=== PATIENT | female | born 1950 | race Caucasian/White ===

== ENCOUNTER 2024-05-10 20:06 | Emergency (ER) | payer MEDICARE, SELFPAY ==
[2024-05-10 20:17] VITALS: PULSE 77; O2SAT 97
--- NOTE | 2024-05-10 20:41 | EKG_ITS ---
[facility] Test Date: 2024-05-10 Pat Name: YENNY MCCRARY Department: Room: - Gender: Female Dough Catcher: : 1950 Requested By: ED Temporary Provider Order Number: [id number] Reading MD: ED Temporary Provider Measurements Intervals [place] Rate: 80 P: 48 VA: 180 QRS: -15 QRSD: 87 T: 57 QT: 416 QTc: 482 Interpretive Statements SINUS RHYTHM LEFT ATRIAL ENLARGEMENT [-0.15mV P WAVE IN V1/V2] Compared to ECG 02/14/2024 19:17:58 Sinus tachycardia no longer present Left-axis deviation no longer present T-wave abnormality no longer present /store/S0/[id number]/ecg/[id number].pdf
[2024-05-10 20:54] VITALS: BP 110/67; PULSE 80; RESP 16; TEMP 36.8; O2SAT 99
[2024-05-10 20:58] VITALS: BMI 20.9
--- NOTE | 2024-05-10 21:06 | PC.NURSE ---
Pt BIB EMS with chief c/o of right hip/shoulder pain after she past out while she was getting up from her chair. Pt does have external rotation of the right left and swelling to the right shoulder.. Pt denied hitting head. Pt is A GCS of 15, A&O X 4. Pt was placed on recovery auditor. call light within reach.
--- NOTE | 2024-05-10 21:20 | XR_ITS ---
Examination: Right shoulder 2 views Technique: AP internal rotation, Y view right shoulder 2 views Exam date and time: May 10, 2024 2135 hrs. Indications: Patient fell today with injury to the shoulder, shoulder pain. Findings: Acute fracture right humeral neck with at least 15 mm offset No dislocation No AC joint separation Impression: Acute fracture right humeral neck
--- NOTE | 2024-05-10 21:20 | XR_ITS ---
Examination: Right scapula 2 views Technique: AP axial right scapula 2 views Exam date and time: May 10, 2024 at 2140 hrs. Indications: Patient fell today with injury to the shoulder, shoulder pain. Findings: Acute fracture humeral neck with significant offset on the Y view Scapula appears intact Impression: Acute displaced fracture humeral neck
--- NOTE | 2024-05-10 21:20 | XR_ITS ---
Examination: Bilateral hips, AP pelvis, 5 views Technique: AP, lateral views both hips, AP pelvis, 5 views Exam date and time: May 10, 2024 2141 hrs. Indications: Patient fell this evening with injury to the hips, hip pain Findings: Acute right hip fracture through the subtrochanteric region with mild avulsion of the lesser trochanter right hip No displacement No dislocation of the prosthetic hemiarthroplasty Left hip bones of the pelvis intact Impression: Acute comminuted nondisplaced right hip fracture
--- NOTE | 2024-05-10 21:20 | XR_ITS ---
Examination: Right os calcis 2 views Technique: Axial lateral right os calcis 2 views Exam date and time: May 10, 2024 2152 hrs. Indications: Nonhealing wound on the heel one month. Findings: No fracture or dislocation No blue cortical bone destruction Impression: No blue cortical bone destruction MRI ankle without contrast follow-up would best assess for early osteomyelitis
--- NOTE | 2024-05-10 21:26 | XR_ITS ---
Examination: CT brain head without contrast. 2-D sagittal coronal reconstructions Date and time of exam:May 10, 2024 11:54 PM Indications: Patient fell today with injury to the head, head pain CTDI: vol (mGy):44.1 DLP: (mGycm):869 Technique: Multiple CT axial sections of the brain have been obtained, 5 mm slice thickness. Contrast has not been administered. 2-D sagittal, coronal reconstructions have been obtained Low dose protocols were performed. One or more of the following dose reduction techniques were used; automated exposure control, adjustment of the mA and/or KV according to patient size, use of iterative reconstruction technique. Findings: No significant ventricular enlargement. 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 No mass effect or midline shift Basal cisterns are not remarkable. Fourth ventricle is midline. Cranial vault intact. Impression: Negative for acute hemorrhage, mass effect or midline shift
--- NOTE | 2024-05-10 21:26 | XR_ITS ---
Examination: CT cervical spine without contrast 2-D sagittal reconstructions 2-D coronal reconstructions 3-D reconstructions. Exam date and time:May 10, 2024 11:56 PM Indications: Patient fell today with injury to the neck, neck pain CTDI:vol (mGy) 7.76 DLP: (mGycm) 173 Technique: Multiple 2 mm axial sections of the cervical spine have been obtained. The coronal and sagittal reconstructions have been obtained. 3-D reconstructions have been obtained. Low dose protocols were performed. One or more of the following dose reduction techniques were used; automated exposure control, adjustment of the mA and/or KV according to patient size, use of iterative reconstruction technique. Findings: Axial sections demonstrate intact base of the skull. C1 exhibit satisfactory relationship to the odontoid. No acute cervical vertebral body fracture seen. Alignment posterior spinous processes satisfactory. Impression: No acute cervical fracture. Heavy carotid vascular calcification, clinical correlation advised, consider carotid Doppler sonography follow-up
--- NOTE | 2024-05-10 21:27 | XR_ITS ---
Examination: AP chest single view Technique: AP portable semiupright chest single view Exam date and time: May 10, 2024 0933 hrs. Comparison February 14, 2024 Indications: Patient fell today with injury to the chest, chest pain Findings: Normal heart size No pneumothorax Stable pulmonary mass right upper lobe measuring 26 mm on this study compared to 28 mm on February 14, 2024 Prominent osteopenia Clavicles and ribs appear intact Impression: No pneumothorax pulmonary contusion or hemothorax
[2024-05-10 21:31] VITALS: PULSE 82
[2024-05-10] MEDS: SODIUM CHLORIDE 0.9% 1000 ML 1,000 ML 999 ML IV (21:42)
[2024-05-10] MEDS: MORPHINE SULF INJ 10 MG/ML VIAL IV (21:44)
[2024-05-10] MEDS: ONDANSETRON INJ 2 MG/ML INJ 2 ML 4 MG IV (21:44)
[2024-05-10] MEDS: SODIUM CHLORIDE 0.9% 1000 ML 1,000 ML 120 ML IV (21:58)
--- NOTE | 2024-05-10 22:10 | EDNOTE_ITS ---
ED Fall Injury RME/HPI General Chief Complaint: Fall Stated Complaint: HIP/ARM PAIN AFTER FALL Time Seen by Provider: 05/10/24 21:14 Arrival date/time: 05/10/24 20:06 RME / HPI RME / HPI Narrative: A 74-year-old female patient with past medical history of COPD, hypertension, type 2 diabetes mellitus on insulin, fibromyalgia, CKD, peripheral neuropathy, drug abuse, was brought to the ED after she fell down at home. Patient reported that she was about to go from her room to the hallway while she was trying to open the door she felt dizzy and fell down to the ground. Patient reported that she fell on her right side of her body and that she complains of pain and limited mobility of her right shoulder and right hip. Patient also reported that she has laceration on her right heel that has been going on for weeks. Patient reported that she does not remember what happened during her fall down. However she remember when her came to see her and when he called the ambulance. Patient denied any head trauma, bleeding, seizures, chest pain or shortness of breath. Related Data Home Medications ?Medication ?Instructions ?Recorded ?Confirmed glipizide 10 mg tablet 10 mg PO BID #0 tabs 11/24/16 02/14/24 lisinopril 20 mg tablet 20 mg PO QDAY 06/10/19 02/14/24 furosemide 20 mg tablet 20 mg PO QAM 09/09/20 02/14/24 insulin detemir U-100 100 unit/mL 60 unit subcut QDAY 09/09/20 02/15/24 (3 mL) subcutaneous pen (Levemir FlexTouch U-100 Insulin) vitamin B comp no.3-folic acid 1 1 tab PO DAILY 09/09/20 02/14/24 mg-vit C 60 mg-biotin 300 mcg tablet (Mandy-Divya Rx) atorvastatin 40 mg tablet 40 mg PO DAILY 02/14/24 02/14/24 famotidine 40 mg tablet 40 mg PO HS 02/14/24 02/14/24 methimazole 5 mg tablet 5 mg PO DAILY 02/14/24 02/14/24 pantoprazole 40 mg tablet,delayed 40 mg PO DAILY 02/14/24 02/14/24 release propranolol 10 mg tablet 10 mg PO BID 02/14/24 02/14/24 methocarbamol 750 mg tablet 750 mg PO 4XD 02/15/24 02/15/24 Previous Rx's ?Medication ?Instructions ?Recorded ferrous sulfate 325 mg (65 mg 325 mg PO Q OTHER DAY 30 days #15 02/18/24 iron) tablet (FeroSul) tabs Allergies Allergy/AdvReac Type Severity Reaction Status Date / Time No Known Allergies Allergy Verified 09/09/20 06:31 ED Exam Narrative Physical exam: GEN: AOx3, able to speak full sentences HEENT: NC/AC, PERRLA, oral mucosa dry, neck supple, no point tenderness or deformity CVS: RRR, S1-S2 present, no murmurs appreciated RESP: No visible bruises, deformity, CTAB GI: soft,non distended, non tender, NBS MSK: Limited mobility of the right shoulder secondary to pain, tender, pulse intact peripherally, no numbness unable to move fingers of the right hand. Right lower extremity showed limited mobility, externally rotated feet, limitation of mobility secondary to pain. However no obvious deformity. SKIN: warm and dry, no bruises or bleeding. SEMICONDUCTOR BONDER: CN II-XII and Sensation grossly intact. Course Quality Measures none Orders Category Date Time Status Certified Nuclear Medicine Technologist NOW Care 05/10/24 21:20 Active Catheter [Urinary Catheter] QS Care 05/10/24 21:20 Active Continuous Pulse Oximetry NOW Care 05/10/24 21:20 Completed EKG (ED ONLY) *Do not use* NOW Care 05/10/24 20:41 Completed Glucose [Bedside Blood Glucose] NOW Care 05/11/24 02:07 Active Insert IV NOW Care 05/10/24 21:21 Active NPO NOW Care 05/10/24 21:20 Active Strict Intake and Output Routine Care 05/10/24 21:33 Ordered Wound Care NOW Care 05/10/24 21:[address] cervical spine wo con Stat Exams 05/10/24 21:[address] head/brain wo con Stat Exams 05/10/24 21:[address] hip RT wo con Stat Exams 05/10/24 23:[address] shoulder RT wo con Stat Exams 05/10/24 23:26 Taken CXRP [XR chest 1V portable] Stat Exams 05/10/24 21:27 Completed EKG (ED Only) Stat Exams 05/10/24 20:41 Draft XR calcaneus RT min 2V Stat Exams 05/10/24 21:20 Completed XR hip BI w pelvis 2V Stat Exams 05/10/24 21:20 Completed XR scapula RT Stat Exams 05/10/24 21:20 Completed XR shoulder RT min 2V Stat Exams 05/10/24 21:20 Completed Beta Hydroxybutyrate Stat Lab 05/10/24 22:15 Completed Blood Culture (Lab) Stat Lab 05/10/24 23:15 Received CBC Stat Lab 05/10/24 22:15 Completed Comprehensive Metabolic Panel Stat Lab 05/10/24 22:15 Completed Drug Screen,Urine Stat Lab 05/10/24 22:33 Completed Lactate (Lactic Acid) Stat Lab 05/10/24 22:15 Completed Lactic Acid, 3 HR Stat Lab 05/11/24 01:58 Completed Lipase Stat Lab 05/10/24 22:15 Completed Partial Thromboplastin Time Stat Lab 05/10/24 22:15 Completed Procalcitonin Stat Lab 05/10/24 23:18 Completed Prothrombin Time with INR Stat Lab 05/10/24 22:15 Completed Troponin I Stat Lab 05/10/24 22:15 Completed UA [Urinalysis] Stat Lab 05/11/24 00:12 Ordered Urinalysis Stat Lab 05/10/24 22:33 Completed Urine Culture Stat Lab 05/11/24 00:12 Ordered Insulin Regular Med 05/10/24 23:42 Discontinued 6 unit IV X1 ONE Morphine Inj Med 05/10/24 21:22 Discontinued 1 mg IV X1 ONE Morphine Inj Med 05/11/24 00:43 Discontinued 2 mg IVP X1 ONE Ondansetron Inj [Zofran Inj] Med 05/10/24 21:20 Active 4 mg IV Q6H PRN Sodium Chloride 0.9% 1000 ml [Ns] 1,000 ml Med 05/10/24 21:33 Active IV 120 mls/hr Sodium Chloride 0.9% 1000 ml [Ns] 1,000 ml Med 05/10/24 21:20 Discontinued IV 999 mls/hr Sodium Chloride 0.9% 500 ml [Ns] 500 ml Med 05/11/24 00:11 Discontinued IV 999 mls/hr cefTRIAXone/D5w 1gm IV premix [Rocephin/D5w 1gm IV Med 05/10/24 23:39 Active premix] 50 ml IV DAILY@2100 Vital Signs Vital signs: Vital Signs Temperature 98.3 F 05/10/24 20:54 Pulse Rate 80 05/10/24 20:54 Respiratory Rate 16 05/10/24 20:54 Blood Pressure 110/67 05/10/24 20:54 Pulse Oximetry (%) 99 05/10/24 20:54 Oxygen Delivery Method Room Air 05/10/24 20:54 Fall Patient data External records reviewed:: [facility] previous records Clinical information provided by:: patient and EMS Social determinants that could affect healthcare access:: substance use Patient has the following chronic illnesses:: COPD, Smoking, Meth abuse, Pulmonary nodule, type 2 diabetes mellitus on insulin. Hypertension How is presenting disease/condition affected by chronic disease/condition?: exacerbated by Evaluation data The following diagnostics were reviewed and interpreted by me:: lab results, radiology exam(s) and EKG tracing(s) Lab and/or radiology exams considered but not ordered:: none Interpretation Summary: Rt Humerus fracture Right periprostatic fracture Medications / Prescriptions Medications or Prescriptions considered but not ordered:: None Medication administrations:: Medication Administration History Sodium Chloride (Ns) 1,000 mls @ 120 mls/hr IV .Q8H20M ONE Stop: 05/11/24 05:52 Last Admin: 05/10/24 21:58 Dose: 120 mls/hr Documented By: SAMAN Ceftriaxone Sodium/Dextrose (Rocephin/D5w 1gm Iv Premix) 50 mls @ 100 mls/hr IV DAILY@2100 VENU Stop: 05/17/24 23:38 Last Infusion: 05/11/24 01:29 Dose: Infused Documented By: Admin: 05/11/24 00:49 Dose: 100 mls/hr Documented By: JOSE Ondansetron HCl (Ondansetron Inj 2 Mg/Ml Inj 2 Ml) 4 mg IV Q6H PRN PRN Reason: NAUSEA OR VOMITING Last Admin: 05/10/24 21:44 Dose: 4 mg Documented By: JOSE Discontinued Medications Sodium Chloride (Ns) 1,000 mls @ 999 mls/hr IV .Q1H1M ONE Stop: 05/10/24 22:20 Last Infusion: 05/10/24 22:45 Dose: Infused Documented By: Admin: 05/10/24 21:42 Dose: 999 mls/hr Documented By: JOSE Sodium Chloride (Ns) 500 mls @ 999 mls/hr IV .Q31M ONE Stop: 05/11/24 00:41 Last Infusion: 05/11/24 01:38 Dose: Infused Documented By: Admin: 05/11/24 01:06 Dose: 999 mls/hr Documented By: JOSE Insulin Human Regular (Insulin Hum Regular 1 Unit/0.01 Ml (Per Unit)) 6 unit IV X1 ONE Stop: 05/10/24 23:43 Last Admin: 05/11/24 00:53 Dose: 6 unit Documented By: JOSE Co-signed By: KG Morphine Sulfate (Morphine Sulf Inj 10 Mg/Ml Vial) 1 mg IV X1 ONE Stop: 05/10/24 21:23 Last Admin: 05/10/24 21:44 Dose: 1 mg Documented By: JOSE Morphine Sulfate (Morphine Sulf Inj 10 Mg/Ml Vial) 2 mg IVP X1 ONE Stop: 05/11/24 00:44 Last Admin: 05/11/24 00:47 Dose: 2 mg Documented By: JOSE As above Consultations Consultation(s) initiated? (list below): Yes Diagnosis Fall Differential Diagnosis: other Most likely diagnosis given after review of the tests above:: Right humerus fracture Right Periprosthetic fracture of the femur. Admission Indicated Admission indicated?: indicated Admission Request Was there a request for admission?: Yes Admission Attestation Admission request attestation: Discussed case with [] from Hospitalist service regarding admission. Discussed patients ED course, exam findings, labs, and radiology results. The Hospitalist [agrees,declines] to accept the patient for admission. Disposition Plan Disposition Plan: Transfer Discharge Plan Plan Patient Disposition: [facility] Facility Pt Being Transferred to: Other-Specify in comment Service Needed for Transfer: Orthopedics Health Concerns: Patient will need orthopedic surgery recommendations and management per fractures Patient will need follow-up on her pulmonary nodule Patient has small chronic laceration on the right heel, x-ray did not show osteomyelitis will need follow-up. Prescriptions/Referrals Prescriptions/Med Rec: No Action glipizide 10 MG tablet 10 mg PO BID Qty: 0 furosemide 20 mg Tablet 20 mg PO QAM Levemir FlexTouch U100 Insulin 100 unit/mL (3 mL) Insulin Pen 60 unit SUBCUT QDAY Mandy-Divya Rx 1-60-300 mg-mg-mcg Tablet 1 tab PO DAILY lisinopril 20 mg Tablet 20 mg PO QDAY famotidine 40 mg tablet 40 mg PO HS Patient Comments: take 1 tablet by mouth at bedtime pantoprazole 40 mg tablet,delayed release (DR/EC) 40 mg PO DAILY Patient Comments: take 1 tablet by mouth once daily atorvastatin 40 mg tablet 40 mg PO DAILY Patient Comments: take 1 tablet by mouth once daily methimazole 5 mg tablet 5 mg PO DAILY Patient Comments: take 1 tablet by mouth once daily 30 propranolol 10 mg tablet 10 mg PO BID Patient Comments: take 1 tablet by mouth twice a day methocarbamol 750 mg Tablet 750 mg PO 4XD ferrous sulfate [FeroSul] 325 mg (65 mg iron) tablet 325 mg PO Q OTHER DAY 30 Days Qty: 15 0RF Patient Comments: take 1 tablet by mouth twice a day Referrals: Michael Morris MD [Primary Care Provider] - In 1 week Problem List Clinical Impression: Methamphetamine abuse, Fracture, humerus, Periprosthetic fracture around internal prosthetic hip joint Patient/Caregiver Discharge Instructions Education Materials: Addiction Ask These Questions, Hip Replace Total Activity, Hip Precautions Print Language: Uzbek Stand Alone Forms: Jessica Award Info., Patient Portal Info Letter
[2024-05-10 22:26] LABS: Basophils # (Auto) 0.1 Thou/mm3 (0.0-0.2); Basophils % (Auto) 1 % (0-2.5); Eosinophils # (Auto) 0.3 Thou/mm3 (0.0-0.5); Eosinophils % (Auto) 2 % (0-10); Hematocrit 42.4 % (36.0-46.0); Hemoglobin 14.4 g/dL (12.0-16.0); Immature Granulocytes % (Auto) 1 % (0-0); Immature Granulocytes Auto 0.08 Thou/mm3 (0.00-0.00); Lymphocytes # (Auto) 2.2 Thou/mm3 (1.0-4.8); Lymphocytes % (Auto) 19 % (10-50); Mean Corpuscular Hemoglobin 29.4 pg (25.0-35.0); Mean Corpuscular Volume 87 fL (80-100); Monocytes # (Auto) 0.7 Thou/mm3 (0.0-0.8); Monocytes % (Auto) 6 % (0-12); Neutrophils # (Auto) 8.5 Thou/mm3 (1.8-7.7); Neutrophils % (Auto) 72 % (37-80); Nucleated Red Blood Cell % 0 /100 WBC (0); Platelet Count 424 Thou/mm3 (140-440); RDW Standard Deviation 38.6 fL (36.4-46.3); Red Blood Count 4.89 Miln/mm3 (4.00-5.20); White Blood Count 11.9 Thou/mm3 (3.6-11.0)
[2024-05-10 22:32] LABS: Lactate (Lactic Acid) 4.3 mMol/L (0.4-2.0)
[2024-05-10 22:42] LABS: INR 0.9 (0.9-1.3); Partial Thromboplastin Time 23.4 Seconds (22.0-36.0); Prothrombin Time 10.3 Seconds (9.0-12.2)
[2024-05-10 22:44] LABS: Collection Type, Urine Catheter; RBC,Urine 0 /hpf (0-3); Squamous Epithelial Cell,Urine 0 /hpf (0-5); WBC,Urine 0 /hpf (0-5)
[2024-05-10 22:53] LABS: Bilirubin,Urine Negative (Negative); Blood,Urine Negative (Negative); Clarity,Urine Clear (Clear/Hazy); Color,Urine Colorless (Lt Yel-Yel); Glucose, Urine 4+ (Negative); Ketones,Urine Negative (Negative); Leukocyte Esterase,Urine Negative (Negative); Nitrite,Urine Negative (Negative); Protein,Urine Negative (Neg - Trace); Specific Gravity,Urine 1.024 (1.001-1.035); Urobilinogen,Urine Negative mg/dL (0.0-1.0)
[2024-05-10 23:00] VITALS: BP 131/60; PULSE 84; RESP 16; TEMP 36.7; O2SAT 96
[2024-05-10 23:01] LABS: Alanine Aminotransferase 14 U/L (10-49); Albumin, Serum 4.6 gm/dL (3.4-4.8); Albumin/Globulin Ratio 1.4 (1.2-2.2); Alkaline Phosphatase 128 U/L (46-116); Anion Gap 9 (7-16); Aspartate Amino Transferase 17 U/L (0-34); BUN/Creatinine Ratio 12 Ratio (12-20); Bilirubin,Total 0.4 mg/dL (0.3-1.2); Blood Urea Nitrogen 14 mg/dL (9-23); Calcium 10.4 mg/dL (8.3-10.6); Calcium (Corrected) 10.4 mg/dL (8.5-10.1); Carbon Dioxide 22.2 mMol/L (20.0-31.0); Chloride 96 mMol/L (98-107); Creatinine (Component) 1.2 mg/dL (0.6-1.3); Estimated Creatinine Clearance 39.4 mL/min (>60); Globulin 3.2 gm/dL (2.3-3.5); Lipase 39 U/L (12-53); Osmolality,Calculated 281 (275-295); Potassium 4.7 mMol/L (3.4-5.1); Sodium 127 mMol/L (136-145); Total Protein 7.8 gm/dL (5.7-8.2); Troponin I < 0.020 ng/mL (0.0-0.045); eGFR 48 See Note
[2024-05-10 23:01] LABS: Amphetamine/Methamp Scrn,U Positive (Negative); Barbiturate Screen,Urine Negative (Negative); Benzodiazepines Screen,Urine Negative (Negative); Benzoylecgonine Screen, Ur Negative (Negative); Fentanyl Screen,Urine Negative (Negative); Opiate Screen,Urine Positive (Negative); THC Screen,Urine Positive (Negative)
[2024-05-10 23:03] LABS: Glucose 564 mg/dL (74-106)
[2024-05-10 23:16] LABS: Beta Hydroxybutyrate 0.3 mmol/L (<0.6)
--- NOTE | 2024-05-10 23:26 | XR_ITS ---
Examination: CT right shoulder, without contrast. 2-D sagittal reconstructions. 2-D coronal reconstructions. 3-D reconstructions. Date and time of exam: May 11, 2024 0003 hrs. Indications: Patient fell today with injury to the right shoulder, right shoulder pain CTDI: vol (mGy):7.67 DLP: (mGycm):167 Technique: Multiple 1.25 mm axial sections of the right shoulder have been obtained. 2-D sagittal and coronal reconstructions have been obtained. 3-D reconstructions have been obtained. Low dose protocols were performed. One or more of the following dose reduction techniques were used; automated exposure control, adjustment of the mA and/or KV according to patient size, use of iterative reconstruction technique. Findings: Acute comminuted fracture with impaction right humeral neck Fracture involves both the greater and lesser tuberosities No dislocation of the humeral head Impression: Acute comminuted fractures humeral head and neck
--- NOTE | 2024-05-10 23:26 | XR_ITS ---
Examination: CT pelvis right hip, without contrast. 2-D sagittal reconstructions. 2-D coronal reconstructions. 3-D reconstructions. Date and time of exam:May 11, 2024 at 0007 hrs. Indications: Patient fell today with injury to the right hip, right hip pain CTDI: vol (mGy):4.26 DLP: (mGycm):160 Technique: Multiple 1.25 mm axial sections of the pelvis right hip have been obtained. 2-D sagittal and coronal reconstructions have been obtained. 3-D reconstructions have been obtained. Low dose protocols were performed. One or more of the following dose reduction techniques were used; automated exposure control, adjustment of the mA and/or KV according to patient size, use of iterative reconstruction technique. Findings: Right hip bipolar hemiarthroplasty Fractures are noted involving the proximal right femoral shaft subtrochanteric adjacent to the prosthetic right hip femoral stem No significant displacement Left hip bones of the pelvis intact Impression: Fractures involving the proximal right femoral shaft subtrochanteric without major displacement
--- NOTE | 2024-05-10 23:51 | PD.ORTHCON ---
HPI Consult details Reason for consultation narrative: Pain right shoulder, right hip History of present illness: Patient is a 74-year-old went to answer the door and fell. She has pain in her right shoulder and right hip Past Medical History Past Medical History NEUROLOGIC: Negative Neurological Disorders or Seizures CARDIAC: Positive Hypercholesterolemia and Hypertension; Negative Cardiac Disorders, Congestive Heart Failure, Edema, Cellulitis or Varicose Veins RESPIRATORY: Positive Chronic Obstructive Pulmonary Disease (COPD); Negative Asthma, Pneumonia, Tuberculosis or Sleep Apnea GASTROINTESTINAL: Positive Gastrointestinal Disorders, Gall Bladder Disease and Gastroesophageal Reflux Disease; Negative Hepatitis GENITOURINARY: Negative Genitourinary Disorders or Renal Disease REPRODUCTIVE: Negative Pelvic Inflammatory Disease or Previous Pregnancies MUSCULOSKELETAL: Positive Musculoskeletal Disorders and Arthritis ENDOCRINE: Positive Endocrine Disorders, Diabetes Mellitus Type 2 and Hypothyroidism; Negative Diabetes Mellitus Type 1 HEMATOLOGIC: Positive Blood Disorders and Anemia; Negative Sickle Cell Disease OTHER HISTORY: Positive Hospitalization, Shingles and Measles; Negative Autoimmune Disease, Falls, Blood Transfusions, Anesthesia Reactions, Chemotherapy, MRSA, Chicken Pox, Mumps or Cancer Family History FAMILY HISTORY: Positive Family Cardiac Disorders and Family Cancer; Negative Family Psychiatric Problems, Family Respiratory Disorders, Family Gastrointestinal Problems, Family Surgery or Family Anesthesia Reaction Surgical History SURGICAL: Positive Eye Surgery, Tonsillectomy, Abdominal Surgery and Joint Replacement; Negative Pacemaker Social History SMOKING STATUS: Former smoker Meds Home Medications and Allergies Home Medications ?Medication ?Instructions ?Recorded ?Confirmed ?Type glipizide 10 mg tablet 10 mg PO BID #0 tabs 11/24/16 02/14/24 History lisinopril 20 mg tablet 20 mg PO QDAY 06/10/19 02/14/24 History furosemide 20 mg tablet 20 mg PO QAM 09/09/20 02/14/24 History insulin detemir U-100 100 unit/mL 60 unit subcut QDAY 09/09/20 02/15/24 History (3 mL) subcutaneous pen (Levemir FlexTouch U-100 Insulin) vitamin B comp no.3-folic acid 1 1 tab PO DAILY 09/09/20 02/14/24 History mg-vit C 60 mg-biotin 300 mcg tablet (Mandy-Divya Rx) atorvastatin 40 mg tablet 40 mg PO DAILY 02/14/24 02/14/24 History famotidine 40 mg tablet 40 mg PO HS 02/14/24 02/14/24 History methimazole 5 mg tablet 5 mg PO DAILY 02/14/24 02/14/24 History pantoprazole 40 mg tablet,delayed 40 mg PO DAILY 02/14/24 02/14/24 History release propranolol 10 mg tablet 10 mg PO BID 02/14/24 02/14/24 History methocarbamol 750 mg tablet 750 mg PO 4XD 02/15/24 02/15/24 History Allergies Allergy/AdvReac Type Severity Reaction Status Date / Time No Known Allergies Allergy Verified 09/09/20 06:31 Exam Vital Signs Temp Pulse Resp BP Pulse Ox O2 Del Method 98.0 F 84 16 131/60 H 96 Room Air 05/10/24 23:00 05/10/24 23:00 05/10/24 23:00 05/10/24 23:00 05/10/24 23:00 05/10/24 23:00 Blood pressure 131/60 Narrative Exam Patient is able to turn head [id number] and lift head off of gurney. Marked swelling proximal right arm. No pain swelling right elbow right wrist hand or fingers able to flex extend fingers right hand. No complaints of pain left upper extremity Has pain in her right hip girdle. No pain right knee. Has ulcer plantar aspect right heel. Does have diabetes Results - Ortho Labs 05/10/24 22:15 05/10/24 22:15 Labs: Short CBC 05/10/24 Range/Units 22:15 WBC 11.9 H (3.6-11.0) Thou/mm3 Hgb 14.4 (12.0-16.0) g/dL Hct 42.4 (36.0-46.0) % Plt Count 424 (140-440) Thou/mm3 BMP 05/10/24 22:15 Sodium 127 L Potassium 4.7 Chloride 96 L Carbon Dioxide 22.2 BUN 14 Creatinine 1.2 Glucose 564 H* Calcium 10.4 Cardiac Enzymes 05/10/24 Range/Units 22:15 Troponin I < 0.020 (0.0-0.045) ng/mL Liver Function 05/10/24 Range/Units 22:15 Total Bilirubin 0.4 (0.3-1.2) mg/dL AST 17 (0-34) U/L ALT 14 (10-49) U/L Alkaline Phosphatase 128 H (46-116) U/L Albumin 4.6 (3.4-4.8) gm/dL Urine 05/10/24 Range/Units 22:33 Urine Color Colorless A (Lt Yel-Yel) Urine Clarity Clear (Clear/Hazy) Urine pH 7.0 (5.0-7.0) Ur Specific [place] 1.024 (1.001-1.035) Urine Protein Negative (Neg - Trace) Urine Glucose (UA) 4+ A (Negative) Sodium 127, blood sugar 564 Assessment & Plan Additional Assessment Additional comments: I reviewed the x-rays she does have a proximal humerus fracture. The shaft is displaced anterior to the humeral head. Patient has proximal peritrochanteric right hip fracture superimposed on bipolar hemiarthroplasty. She had the surgery in [place] in 2011. Plan Patient has a complex fracture proximal humerus right upper extremity with his shaft being anterior to the humeral head. She also has a peritrochanteric subtrochanteric right femur fracture with underlying cementless bipolar hemiarthroplasty. I spoke with the ER staff. This is complex. She needs CT scan shoulder right upper extremity and right hip. This is out of my skill set and should be transferred to higher level of care. Her case is complicated by diabetes and blood sugar of 564
[2024-05-10 23:56] LABS: Procalcitonin 0.06 ng/ml (0.0-0.49)
[2024-05-11] VITALS (10 sets, daily range): BP systolic 109–136; BP diastolic 58–95; PULSE 87–101; RESP 15–20; TEMP 36.8–37.2; O2SAT 93–98
[2024-05-11] MEDS: MORPHINE SULF INJ 10 MG/ML VIAL 2 MG IVP ×4 (00:47→17:39)
[2024-05-11] MEDS: cefTRIAXone/D5w 1gm IV premix 50 ML IV (00:49)
[2024-05-11] MEDS: INSULIN HUM REGULAR 1 UNIT/0.01 ML (PER UNIT) 6 UNIT IV (00:53)
[2024-05-11] MEDS: SODIUM CHLORIDE 0.9% 500 ML 500 ML 999 ML IV (01:06)
--- NOTE | 2024-05-11 01:08 | PRELIM_ITS ---
CT scan of the right shoulder without intravenous contrast (axial sections with sagittal and coronal reformats) May 10, 2024 at 2359 hours Clinical History: Humerus fracture.Comparison: No prior st udy is available for comparison.Findings:Acute comminuted displaced impacted fracture of the humeral neck.No dislocation.Impression:Complex humeral fracture. Orthopedic consult is recommended. Report El ectronically Signed By: Miguel Perales 05/11/2024 1:07:20 AM [EST]
--- NOTE | 2024-05-11 01:17 | PRELIM_ITS ---
CT scan of the cervical spine without intravenous contrast (axial sections with sagittal and coronal reformats) May 10, 2024 2354 hours Clinical History: Multiple trauma Comparison: None.Findings:T here is no fracture or subluxation. Degenerative changes of the cervical spine. The prevertebral soft tissues are unremarkable. Vascular calcification is noted.Impression:No evidence of fracture or subl uxation. Report Electronically Signed By: Miguel Perales 05/11/2024 1:16:44 AM [EST]
--- NOTE | 2024-05-11 01:18 | PRELIM_ITS ---
CT scan of the head without intravenous contrast (axial sections with sagittal and coronal reformats) May 10, 2024 2354 hoursClinical History: Multiple traumaComparison: None.Findings:Area of encep halomalacia in the left parietal lobe consistent with chronic infarct in the territory of the left MC A.There is no evidence of intracranial hemorrhage, mass effect or midline shift. There are periventri cular white matter hypodensities, compatible with chronic small vessel ischemia. There is moderate vo lume loss. The calvarium is intact. The mastoid air cells and the visualized paranasal sinuses are c lear.Impression:No evidence of intracranial hemorrhage, midline shift or calvarial fracture. Perivent ricular chronic small vessel ischemia and volume loss. Report Electronically Signed By: Miguel bhatti 05/11/2024 1:17:47 AM [EST]
[2024-05-11 01:20] LABS: Reflex Lactate? Y
--- NOTE | 2024-05-11 01:51 | PRELIM_ITS ---
CT scan of the right hip without intravenous contrast (axial sections with sagittal and coronal refor mats) May 11, 2024 at 0007 hours Clinical History: Fracture Comparison: No prior study is availa ble for comparison. Findings:Total right hip implant is seen without loosening or displacement. An a cute mildly displaced periprosthetic fracture of the right proximal femoral diaphysis is noted with a djacent soft tissue swelling.The other visualized bones are intact. There is diffuse osteopenia. The left hip joint space is maintained. The other visualized soft tissues are within normal limits. The sacroiliac joints are unremarkable.Limited evaluation of the pelvic organs due to streak artifact fro m the right hip implant. A Lambert catheter is seen in the urinary bladder. The iliac and femoral arter ies demonstrate atheromatous calcification without evidence of aneurysm. The other visualized soft ti ssues including pelvic viscera are unremarkable.Impression:Acute mildly displaced periprosthetic frac ture of the right proximal femoral diaphysis with adjacent soft tissue swelling.Other findings as venkatesh cribed above. Report Electronically Signed By: Daniel Orona 05/11/2024 1:50:31 AM [EST]
[2024-05-11 02:19] LABS: Lactic Acid, 3 HR 3.2 mMol/L (0.4-2.0)
--- NOTE | 2024-05-11 03:00 | PC.NURSE ---
FAXED AND SEND INFORMATION TO [facility] AND TALKED TO BROOKE.
--- NOTE | 2024-05-11 04:00 | PC.NURSE ---
[facility] CALLED, ORTHO TALKED TO DR. DUEÑAS , DENIED DUE ESTRELLITA SALEH OUT OF CAPIBILTY.
--- NOTE | 2024-05-11 04:10 | PC.NURSE ---
FAXED INFORMATION TO [facility] AND TALKED TO SHANNON CAMILOMATERIAL CLERK NURSE.
--- NOTE | 2024-05-11 05:00 | PC.NURSE ---
[facility]ED INFORMATION TO [facility].
--- NOTE | 2024-05-11 06:18 | PD.EDADDENDU ---
Emergency Room Addendum Addendum Narrative: Care assumed from Dr. Barney (emergency physician). Past medical, surgical, social and family history reviewed. Vitals and home medications reviewed. Results and treatment plan discussed. I will assume the care of the patient at this time and will follow the patient, pending tranfer 0620 Discussed with transfer nurse at [facility]. 74 year old female, history of DM, HTN, right hip replacement 12 years ago. Reports after an accident on mobile wheelchair fall and landed on the right side. States she was going to get out of bed, got to the bathroom and collapsed after feeling light headed. Unsure of head trauma. Reports right arm and leg pain. Physical exam shows echymosis right upper up, right left minimally shortened with pain of passive ROM. dry crack over heel with some mild erythema no purulence. Reports history of previous stroke, unsure of timeline, reports syncopal episodes when she gets up rapidly. 1135 Patient accepted to [facility] for transfer.
--- NOTE | 2024-05-11 06:45 | PC.NURSE ---
[facility] TRANSFER TALKED TO DR. GENAO.
--- NOTE | 2024-05-11 08:05 | PC.NURSE ---
[facility] TRANSFER CENTER DECLINED DUE TO NO EQUIPMENT FOR THE TYPE OF FX SHE HAS. PER TRANSFER CENTER
--- NOTE | 2024-05-11 08:39 | PC.CM ---
Addendum entered by Leonora Waters RN 05/11/24 17:51: Patient was transferred to [facility] at 1745. Addendum entered by Leonora Waters RN 05/11/24 15:20: patient has been accepted by [facility] on [address] Rm [id number]. Patient is aware of the transfer to [place]. I will set up transport. Addendum entered by Leonora Waters RN 05/11/24 13:08: Patient has been accepted by [facility] with Dr. Barbara Herman (hospitalist) and Dr. Arnold Maria. We are pending an open bed. Original Note: I spoke to [facility] and i reviewed notes. Patient needs to be transferred for Patient has a complex fracture proximal humerus right upper extremity with his shaft being anterior to the humeral head. She also has a peritrochanteric subtrochanteric right femur fracture with underlying cementless bipolar hemiarthroplasty. Patient was declined by [facility] and [facility] stating they cannot manage patient due to complex case. I see information was sent to [facility] so I called and initiated transfer. I pushed over images. Nurse was going to call and speak to Dr. Escobedo.
--- NOTE | 2024-05-11 15:06 | PC.NURSE ---
Report given to Juan at [facility]
== END 2024-05-11 17:45 | disposition short-term general hospital (02) ==
PROVIDERS: Emergency Medicine; Student in an Organized Health Care Education/Training Program; Emergency Provider Emergency Medicine; PCP Family Medicine
DX: M97.01XA Periprosthetic fracture around internal prosthetic right hip joint, initial encounter (principal); S42.211A Unspecified displaced fracture of surgical neck of right humerus, initial encounter for closed fracture; F15.10 Other stimulant abuse, uncomplicated; S29.9XXA Unspecified injury of thorax, initial encounter; S79.912A Unspecified injury of left hip, initial encounter; S19.9XXA Unspecified injury of neck, initial encounter; S09.90XA Unspecified injury of head, initial encounter; R94.31 Abnormal electrocardiogram [ECG] [EKG]; W19.XXXA Unspecified fall, initial encounter; Z96.641 Presence of right artificial hip joint; Z75.1 Person awaiting admission to adequate facility elsewhere
CPT/HCPCS: 51702; 36415; 70450; 71045; 72125; 73010; 73030; 73200; 73521; 73650; 73700; 80053; 80307; 81001; 82010; 83605; 83690; 84145; 84484; 85025; 85610; 85730; 87040; 87077; 87086; 87186; 96361; 96365; 96366; 96367; 96375; 96376; 99284; J0696; J1815; J2270; J2405; J7030; J7040

== ENCOUNTER 2024-07-26 14:17 | Inpatient (IN) | payer MEDICARE, SELFPAY ==
[2024-07-26 14:19] VITALS: BMI 20.1
[2024-07-26 14:32] VITALS: BP 114/56; PULSE 92; RESP 18; TEMP 36.8; O2SAT 95
--- NOTE | 2024-07-26 14:39 | XR_ITS ---
Examination: Toes, left foot 3 views Technique: Toes AP oblique lateral 3 views toes left foot Date and time of exam: July 26, 2024 1508 hours INDICATIONS: Diabetic with nonhealing wounds involving toes left foot this week FINDINGS: Significant osteopenia Suspicious on the AP view for cortical bone destruction involving the distal phalanx fifth digit No fracture No opaque foreign body IMPRESSION: Recommend follow-up films, coned, fifth digit as clinically warranted
--- NOTE | 2024-07-26 14:40 | PD.EDRME ---
Rapid Medical Screening Exam E Arrival date/time: 07/26/24 14:17 74y f with complaints of pain to her fourth and fifth toe left leg reports chronic diabetic ulcers noticed this morning her pinky toe was purple to black color. I have greeted and performed a focused initial assessment of this patient. Initial appropriate labs ordered at this time. A comprehensive ED assessment and evaluation of the patient and analysis of all test and completion of medical decision making process will be conducted by additional ED provider. Chief Complaint: Extremity Problem,Nontraumatic Time Seen by Provider: 07/26/24 14:19 Vital signs: Vital Signs Temperature 98.3 F 07/26/24 14:32 Pulse Rate 92 07/26/24 14:32 Respiratory Rate 18 07/26/24 14:32 Blood Pressure 114/56 L 07/26/24 14:32 Pulse Oximetry (%) 95 07/26/24 14:32 Oxygen Delivery Method Room Air 07/26/24 14:32
[2024-07-26 15:14] LABS: Lactate (Lactic Acid) 3.8 mMol/L (0.4-2.0)
[2024-07-26 15:15] LABS: Basophils # (Auto) 0.1 Thou/mm3 (0.0-0.2); Basophils % (Auto) 1 % (0-2.5); Eosinophils # (Auto) 0.3 Thou/mm3 (0.0-0.5); Eosinophils % (Auto) 3 % (0-10); Hematocrit 38.2 % (36.0-46.0); Hemoglobin 12.9 g/dL (12.0-16.0); Immature Granulocytes % (Auto) 1 % (0-0); Immature Granulocytes Auto 0.05 Thou/mm3 (0.00-0.00); Lymphocytes # (Auto) 2.2 Thou/mm3 (1.0-4.8); Lymphocytes % (Auto) 20 % (10-50); Mean Corpuscular HGB Conc 33.8 g/dl (31.0-37.0); Mean Corpuscular Hemoglobin 28.9 pg (25.0-35.0); Mean Corpuscular Volume 86 fL (80-100); Monocytes # (Auto) 0.8 Thou/mm3 (0.0-0.8); Monocytes % (Auto) 8 % (0-12); Neutrophils # (Auto) 7.4 Thou/mm3 (1.8-7.7); Neutrophils % (Auto) 68 % (37-80); Nucleated Red Blood Cell % 0 /100 WBC (0); Platelet Count 354 Thou/mm3 (140-440); RDW Standard Deviation 40.3 fL (36.4-46.3); Red Blood Count 4.46 Miln/mm3 (4.00-5.20); White Blood Count 10.8 Thou/mm3 (3.6-11.0)
[2024-07-26 15:41] LABS: Sed Rate (ESR) 87 mm/hr (0-30)
[2024-07-26 15:49] LABS: Alanine Aminotransferase 9 U/L (10-49); Albumin, Serum 4.3 gm/dL (3.4-4.8); Albumin/Globulin Ratio 1.5 (1.2-2.2); Alkaline Phosphatase 170 U/L (46-116); Anion Gap 10 (7-16); Aspartate Amino Transferase < 10 U/L (0-34); BUN/Creatinine Ratio 12 Ratio (12-20); Bilirubin,Total 0.3 mg/dL (0.3-1.2); Blood Urea Nitrogen 14 mg/dL (9-23); C-Reactive Protein 5.1 mg/dL (0.0-0.9); Calcium 9.8 mg/dL (8.3-10.6); Calcium (Corrected) 9.8 mg/dL (8.5-10.1); Carbon Dioxide 25.7 mMol/L (20.0-31.0); Chloride 91 mMol/L (98-107); Creatinine (Component) 1.2 mg/dL (0.6-1.3); Estimated Creatinine Clearance 37.9 mL/min (>60); Globulin 2.9 gm/dL (2.3-3.5); Lipase 37 U/L (12-53); Osmolality,Calculated 288 (275-295); Potassium 4.1 mMol/L (3.4-5.1); Procalcitonin 0.14 ng/ml (0.0-0.49); Sodium 127 mMol/L (136-145); Total Protein 7.2 gm/dL (5.7-8.2); eGFR 48 See Note
[2024-07-26 15:51] LABS: Glucose 694 mg/dL (74-106)
--- NOTE | 2024-07-26 16:08 | XR_ITS ---
Examination: CTA abdominal aorta iliofemoral runoff. 2-D sagittal coronal reconstructions. 3-D reconstructions, vascular Examination done: July 26, 2024 1834 hours INDICATIONS: Left foot numbness redness swelling and pain discoloration 1 month Technique: Multiple CTA images of the abdominal aorta iliofemoral runoff arterial vessels, 2.0 mm slice thickness, post intravenous administration 130 cc Isovue-[id number] 2-D sagittal coronal reconstructions. 3-D reconstructions, vascular 3-D postprocessing, including vascular maximum intensity projection images, 3-D volume rendering Low dose protocols were performed. One or more of the following dose reduction techniques were used; automated exposure control, adjustment of the mA and/or KV according to patient size, use of iterative reconstruction technique. Findings: Large retrocardiac gastric hernia No focal liver or splenic lesions Absent gallbladder No pancreatic mass No hydronephrosis. Small fat-containing umbilical hernia No pericecal inflammatory changes Distended urinary bladder Atrophic uterus No adnexal mass Heavy abdominal aortic calcification Heavy calcification origin renal arteries 70% stenosis proximal right common iliac artery, 50% stenosis proximal left common iliac artery external iliac arteries are intact Multiple short segment 90% plus critical stenoses proximal mid and distal right superficial femoral artery. Right popliteal artery significantly attenuated Occlusion proximal right anterior tibial artery Very poor filling of the right posterior tibial artery and main continuation trunk is occluded in its distal portion Left superficial femoral artery is occluded in its proximal 20 cm with multiple critical stenoses Diffusely attenuated left popliteal artery Occlusion left anterior tibial artery in its distal portion Total occlusion proximally of the left posterior tibial artery IMPRESSION: 70% stenosis right common iliac artery. 50% stenosis left iliac artery Multiple critical stenoses right superficial femoral artery Occlusion proximal right anterior tibial artery Occlusion right main continuous trunk in its distal portion Occlusion left superficial femoral artery proximally for 20 cm with multiple critical stenoses in the mid and distal left superficial femoral artery Total occlusion proximal left posterior tibial artery
--- NOTE | 2024-07-26 16:10 | EDNOTE_ITS ---
ED Extremity Problem RME/HPI General Chief complaint: Extremity Problem,Nontraumatic Stated complaint: Left foot pain Time Seen by Provider: 07/26/24 14:19 Arrival date/time: 07/26/24 14:17 RME / HPI RME / HPI Narrative: 74-year-old female patient with significant history of methamphetamine abuse, diabetes mellitus, hypertension, came in for evaluation regarding gangrene 5th toe right. Patient has been having wound to the 4th toe right for a -month, seen by and followed by wound care nurse at home, doing dressing almost every 3 to 4 days, but patient noticed 5th toe turning black swollen and worsening wound to the fourth toe. Patient denies any fever denies any other complaints no medication was taken prior travel. Was also noted to have blood blood sugar about 500 at home. Patient is not taking any antibiotic. Patient is ambulatory. Related Data Home Medications ?Medication ?Instructions ?Recorded ?Confirmed glipizide 10 mg tablet 10 mg PO BID #0 tabs 11/24/16 02/14/24 lisinopril 20 mg tablet 20 mg PO QDAY 06/10/19 02/14/24 furosemide 20 mg tablet 20 mg PO QAM 09/09/20 02/14/24 insulin detemir U-100 100 unit/mL 60 unit subcut QDAY 09/09/20 02/15/24 (3 mL) subcutaneous pen (Levemir FlexTouch U-100 Insulin) vitamin B comp no.3-folic acid 1 1 tab PO DAILY 09/09/20 02/14/24 mg-vit C 60 mg-biotin 300 mcg tablet (Mandy-Divya Rx) atorvastatin 40 mg tablet 40 mg PO DAILY 02/14/24 02/14/24 famotidine 40 mg tablet 40 mg PO HS 02/14/24 02/14/24 methimazole 5 mg tablet 5 mg PO DAILY 02/14/24 02/14/24 pantoprazole 40 mg tablet,delayed 40 mg PO DAILY 02/14/24 02/14/24 release propranolol 10 mg tablet 10 mg PO BID 02/14/24 02/14/24 methocarbamol 750 mg tablet 750 mg PO 4XD 02/15/24 02/15/24 Previous Rx's ?Medication ?Instructions ?Recorded ferrous sulfate 325 mg (65 mg 325 mg PO Q OTHER DAY 30 days #15 02/18/24 iron) tablet (FeroSul) tabs Allergies Allergy/AdvReac Type Severity Reaction Status Date / Time No Known Allergies Allergy Verified 09/09/20 06:31 Review of Systems Review of Systems Narrative Review of Systems: Review of system reviewed and within normal limits except mentioned in HPI ED Exam Narrative Physical exam: VITAL SIGNS: Reviewed. GENERAL APPEARANCE: Alert and interactive, follows commands, no acute distress, HEAD AND FACE: Non-traumatic. ENT: PERRL, pink conjunctivitis, eyelid no trauma, Mucous membrane moist. NECK: Supple, nontender, no nuchal rigidity. CHEST: No tenderness, no crepitus, no paradoxical movement, no retractions. LUNGS: Clear, well ventilated, symmetric, no rales, no wheezing, no ronchi, no stridor, good breath sounds bilaterally. HEART: Regular rate, regular rhythm, no murmur, no gallops. ABDOMEN: Soft, positive bowel sounds, nondistended, no guarding, nontender, no rebound, no masses, RECTAL: Deferred. GENITAL: Deferred. NEUROLOGICAL: Gross motor function intact sensory function intact, Appropriate for age. MUSCULOSKELETAL: low back nontender, full range of motion. EXTREMITIES:right 5th toe swelling, gangrene involving the whole 2, 4 to with swelling, redness and open wound lateral aspect, nontender, full range of motion. SKIN: Color pink, dry, no rash, no lacerations, no abrasions, no contusions. LYMPHATICS: Deferred. Course Quality Measures none Orders Category Date Time Status Admit to Inpatient Status Routine Admission 07/26/24 22:30 Active Patient Condition Routine Admission 07/26/24 22:30 Ordered COVID-19 Screening Questionnaire NOW Care 07/26/24 21:[address] Screening NOW Care 07/26/24 16:08 Active Decision to Admit X1 Care 07/26/24 21:37 Completed Miscellaneous Nursing Order X1 Care 07/26/24 22:43 Active NPO after Midnight ONCE Care 07/26/24 22:36 Active Notify provider NEEDED Care 07/26/24 22:30 Active Seizure precautions NEEDED Care 07/26/24 22:32 Active Consult to General Surgery Stat Cons 07/26/24 21:38 Ordered Consult to General Surgery Stat Cons 07/26/24 22:43 Ordered Diet NPO after Midnight Diet 07/27/24 00:[address] angio abd ilio fem runoff Stat Exams 07/26/24 16:08 Completed XR toe LT min 2V Stat Exams 07/26/24 14:39 Completed CBC AM DRAW Lab 07/27/24 05:00 Ordered CBC AM DRAW Lab 07/28/24 05:00 Ordered CBC AM DRAW Lab 07/29/24 05:00 Ordered CBC Stat Lab 07/26/24 14:56 Completed CRP [C-Reactive Protein] Stat Lab 07/26/24 14:56 Completed Comprehensive Metabolic Panel AM DRAW Lab 07/27/24 05:00 Ordered Comprehensive Metabolic Panel AM DRAW Lab 07/28/24 05:00 Ordered Comprehensive Metabolic Panel AM DRAW Lab 07/29/24 05:00 Ordered Comprehensive Metabolic Panel Stat Lab 07/26/24 14:56 Completed Lactic Acid [Lactate (Lactic Acid)] Stat Lab 07/26/24 14:56 Completed Lactic Acid, 3 HR Stat Lab 07/26/24 19:42 Completed Lipase Stat Lab 07/26/24 14:56 Completed Lipid Panel AM DRAW Lab 07/27/24 05:00 Ordered MRSA Nasal Screen Routine Lab 07/26/24 22:39 Ordered Magnesium AM DRAW Lab 07/27/24 05:00 Ordered Magnesium AM DRAW Lab 07/28/24 05:00 Ordered Magnesium AM DRAW Lab 07/29/24 05:00 Ordered Partial Thromboplastin Time AM DRAW Lab 07/27/24 05:00 Ordered Phosphorous AM DRAW Lab 07/27/24 05:00 Ordered Phosphorous AM DRAW Lab 07/28/24 05:00 Ordered Phosphorous AM DRAW Lab 07/29/24 05:00 Ordered Procalcitonin Stat Lab 07/26/24 14:56 Completed Prothrombin Time with INR AM DRAW Lab 07/27/24 05:00 Ordered Sed Rate (ESR) Stat Lab 07/26/24 14:56 Completed Thyroid Stimulating Hormone AM DRAW Lab 07/27/24 05:00 Ordered Acetaminophen Tab [Tylenol Tab] Med 07/26/24 22:30 Active 650 mg PO Q6H PRN Dextrose 50% Syr [D50w Syringe Abboject] Med 07/26/24 22:36 Active 50 ml IV Q15MIN PRN Doxycycline Inj [Vibramycin Inj] 100 mg Med 07/27/24 09:00 Ordered Sodium Chloride 0.9% (P) [NS 0.9% mini bag] 100 ml IV BID Glucagon Inj Med 07/26/24 22:36 Active 1 mg IM Q15MIN PRN INSULIN LISPRO (AdmeLOG) [HumaLOG] Med 07/27/24 07:30 Ordered See Protocol SC ACHS Insulin Glargine Inj [Lantus Inj] Med 07/26/24 22:38 Discontinued 40 unit SC X1 ONE Insulin Regular Med 07/26/24 16:08 Discontinued 10 unit SC X1 ONE Morphine Inj Med 07/26/24 22:33 Active 2 mg IVP Q4H PRN Ondansetron Inj [Zofran Inj] Med 07/26/24 22:30 Ordered 4 mg IV Q6H PRN Pantoprazole [Protonix] Med 07/27/24 09:00 Ordered 40 mg PO QDAY Piperacillin/Tazo 2.25GM Inj [Zosyn Inj] 2.25 gm Med 07/26/24 22:42 Ordered Sodium Chloride 0.9% (P) [Ns 0.9% (P)] 50 ml IV Q6HR Senna [Senokot] Med 07/27/24 09:00 Ordered 1 tab PO QDAY Sodium Chloride 0.9% 1000 ml [Ns] 1,000 ml Med 07/26/24 16:09 Discontinued IV 999 mls/hr Vancomycin Inj 1,000 mg Med 07/26/24 16:09 Discontinued Sodium Chloride 0.9% 250 ml [Ns] 250 ml IV X1 ceFAZolin/D5W 2 GM IV [Ancef 2gm Ivpb] Med 07/26/24 16:08 Discontinued 2 gm in 100 ml IV X1 hydrALAZINE INJ [Apresoline Inj] Med 07/26/24 22:43 Active 5 mg IV Q6HR PRN traMADol HCL [Ultram] Med 07/26/24 22:33 Active 50 mg PO Q6HR PRN traMADol HCL [Ultram] Med 07/26/24 18:18 Discontinued 50 mg PO X1 ONE Code Status Routine Oth 07/26/24 22:30 Ordered Late Tray Request Routine Oth 07/26/24 22:35 Active Oxygen Delivery PRN RT 07/26/24 22:30 Active Vital Signs Vital signs: Vital Signs Temperature 98.3 F 07/26/24 14:32 Pulse Rate 92 07/26/24 14:32 Respiratory Rate 18 07/26/24 14:32 Blood Pressure 114/56 L 07/26/24 14:32 Pulse Oximetry (%) 95 07/26/24 14:32 Oxygen Delivery Method Room Air 07/26/24 14:32 Extremity Problem MDM Narrative MDM Narrative:: 74-year-old female patient with significant history of methamphetamine abuse, diabetes mellitus, hypertension, came in for evaluation regarding gangrene 5th toe right. Patient has been having wound to the 4th toe right for a -month, seen by and followed by wound care nurse at home, doing dressing almost every 3 to 4 days, but patient noticed 5th toe turning black swollen and worsening wound to the fourth toe. Patient denies any fever denies any other complaints no medication was taken prior travel. Was also noted to have blood blood sugar about 500 at home. Patient is not taking any antibiotic. Patient is ambulatory. Patient has significant elevated blood sugar of 694 with no sign of diabetic ketoacidosis. CBC no leukocytosis. X-ray of the foot showed no osteomyelitis noted. CT angiogram of the abdomen and pelvis with iliofemoral runoff showed 70% stenosis right common iliac artery. 50% stenosis left iliac artery Multiple critical stenoses right superficial femoral artery Occlusion proximal right anterior tibial artery Occlusion right main continuous trunk in its distal portion Occlusion left superficial femoral artery proximally for 20 cm with multiple critical stenoses in the mid and distal left superficial femoral artery Total occlusion proximal left posterior tibial artery Plan of care discussed with the patient and family regarding admission and possible to amputation, they both agreed. I consulted Dr. Matamoros, general surgeon on-call, who advised me to asked the hospitalist to admit the patient for surgery tomorrow. Patient data External records reviewed:: None Clinical information provided by:: patient and family Social determinants that could affect healthcare access:: none Patient has the following chronic illnesses:: Diabetes mellitus How is presenting disease/condition affected by chronic disease/condition?: exacerbated by Evaluation data The following diagnostics were reviewed and interpreted by me:: lab results and radiology exam(s) Lab and/or radiology exams considered but not ordered:: None Interpretation Summary: See results in MDM Medications / Prescriptions Medications or Prescriptions considered but not ordered:: None Medication administrations:: Medication Administration History Acetaminophen (Acetaminophen 325 Mg Tablet) 650 mg PO Q6H PRN PRN Reason: Fever >100.3 or pain Stop: 08/25/24 22:29 Dextrose (Dextrose 50%-Water Inj 50 Ml Syringe) 50 ml IV Q15MIN PRN PRN Reason: BG <50 OR BG <70 & pt unresponsive Stop: 08/25/24 22:35 Glucagon (Glucagon Inj 1 Mg Vial) 1 mg IM Q15MIN PRN PRN Reason: BG <70, and no IV access Hydralazine HCl (Hydralazine Inj 20 Mg/Ml Vial) 5 mg IV Q6HR PRN PRN Reason: SBP > 170 Stop: 08/25/24 22:42 Doxycycline Hyclate 100 mg/ (Sodium Chloride) 100 mls @ 100 mls/hr IV BID VENU Stop: 08/03/24 08:59 Piperacillin Sod/Tazobactam (Sod 2.25 gm/ Sodium Chloride) 50 mls @ 100 mls/hr IV Q6HR VENU Stop: 08/02/24 22:41 Insulin Human Lispro (Insulin Lispro (Admelog) 1 Unit/0.01 Ml Unit) 0 unit SC ACHS [facility]; Protocol Stop: 08/26/24 07:29 Morphine Sulfate (Morphine Sulf Inj 10 Mg/Ml Vial) 2 mg IVP Q4H PRN PRN Reason: BREAKTHROUGH PAIN Stop: 07/31/24 22:32 Ondansetron HCl (Ondansetron Inj 2 Mg/Ml Inj 2 Ml) 4 mg IV Q6H PRN; Protocol PRN Reason: NAUSEA OR VOMITING Stop: 08/25/24 22:29 Pantoprazole Sodium (Pantoprazole 40 Mg Tablet) 40 mg PO QDAY [facility] Stop: 08/26/24 08:59 Sennosides (Senna Tablet) 1 tab PO QDAY [facility]; Protocol Stop: 08/26/24 08:59 Tramadol HCl (Tramadol Hcl 50 Mg Tablet) 50 mg PO Q6HR PRN PRN Reason: PAIN SCALE 4-10(Mod-Sev Stop: 07/31/24 22:32 Discontinued Medications Cefazolin Sodium (Ancef 2gm Ivpb) 2 gm in 100 mls @ 200 mls/hr IV X1 ONE Stop: 07/26/24 16:37 Last Infusion: 07/26/24 18:12 Dose: Infused Documented By: Admin: 07/26/24 16:58 Dose: 200 mls/hr Documented By: TAMIKO Vancomycin HCl 1,000 mg/ (Sodium Chloride) 250 mls @ 150 mls/hr IV X1 ONE Stop: 07/26/24 17:48 Last Infusion: 07/26/24 19:58 Dose: Infused Documented By: Admin: 07/26/24 18:12 Dose: 150 mls/hr Documented By: TAMIKO Sodium Chloride (Ns) 1,000 mls @ 999 mls/hr IV .Q1H1M ONE Stop: 07/26/24 17:09 Last Infusion: 07/26/24 18:29 Dose: Infused Documented By: Admin: 07/26/24 17:06 Dose: 999 mls/hr Documented By: TAMIKO Insulin Glargine (Insulin Glargine (Lantus) 5 Unit/0.05 Ml (Per 5 Units)) 40 unit SC X1 ONE Stop: 07/26/24 22:39 Insulin Human Regular (Insulin Hum Regular 1 Unit/0.01 Ml (Per Unit)) 10 unit SC X1 ONE Stop: 07/26/24 16:09 Last Admin: 07/26/24 17:09 Dose: 10 unit Documented By: TAMIKO Co-signed By: ED Tramadol HCl (Tramadol Hcl 50 Mg Tablet) 50 mg PO X1 ONE Stop: 07/26/24 18:19 Last Admin: 07/26/24 18:25 Dose: 50 mg Documented By: TAMIKO Vancomycin IV, Ancef IV, IV fluids and insulin Consultations Consultation(s) initiated? (list below): Yes Consultation #1 (Physician, Specialty, Details): General surgeon on-call, Dr. Matamoros, thank you Dr. Matamoros Diagnosis Extremity Problem Differential Diagnosis: other (Gangrene toes, diabetic foot infection, peripheral arterial disease) Most likely diagnosis given after review of the tests above:: Diabetic toe gangrene Admission Indicated Admission indicated?: indicated Explain why admission is indicated or not indicated:: Patient is to be admitted for further management Admission Request Was there a request for admission?: Yes Admission Attestation Admission request attestation: Discussed case with [Dr. Hong] from Hospitalist service regarding admission. Discussed patients ED course, exam findings, labs, and radiology results. The Hospitalist [agrees] to accept the patient for admission. Disposition Plan Disposition Plan: Admit Discharge Plan Prescriptions/Referrals Prescriptions/Med Rec: No Action glipizide 10 MG tablet 10 mg PO BID Qty: 0 furosemide 20 mg Tablet 20 mg PO QAM Levemir FlexTouch U100 Insulin 100 unit/mL (3 mL) Insulin Pen 60 unit SUBCUT QDAY [facility]ya Rx 1-60-300 mg-mg-mcg Tablet 1 tab PO DAILY lisinopril 20 mg Tablet 20 mg PO QDAY famotidine 40 mg tablet 40 mg PO HS Patient Comments: take 1 tablet by mouth at bedtime pantoprazole 40 mg tablet,delayed release (DR/EC) 40 mg PO DAILY Patient Comments: take 1 tablet by mouth once daily atorvastatin 40 mg tablet 40 mg PO DAILY Patient Comments: take 1 tablet by mouth once daily methimazole 5 mg tablet 5 mg PO DAILY Patient Comments: take 1 tablet by mouth once daily 30 propranolol 10 mg tablet 10 mg PO BID Patient Comments: take 1 tablet by mouth twice a day methocarbamol 750 mg Tablet 750 mg PO 4XD ferrous sulfate [FeroSul] 325 mg (65 mg iron) tablet 325 mg PO Q OTHER DAY 30 Days Qty: 15 0RF Patient Comments: take 1 tablet by mouth twice a day Referrals: Michael Morris MD [Primary Care Provider] - In 1 week Problem List Clinical Impression: Hyperglycemia due to diabetes mellitus, Gangrene of toe of left foot Patient/Caregiver Discharge Instructions Print Language: Latvian
[2024-07-26] MEDS: ceFAZolin/D5W 2 GM IV 2 GM/100 ML BAG IV (16:58)
[2024-07-26] MEDS: SODIUM CHLORIDE 0.9% 1000 ML 1,000 ML 999 ML IV (17:06)
[2024-07-26] MEDS: INSULIN HUM REGULAR 1 UNIT/0.01 ML (PER UNIT) 10 UNIT SC (17:09)
[2024-07-26 17:38] VITALS: BP 129/62; PULSE 86; RESP 14; TEMP 37.1; O2SAT 93
[2024-07-26 18:09] LABS: Reflex Lactate? Y
[2024-07-26] MEDS: Vancomycin Inj 1,000 MG in SODIUM CHLORIDE 0.9% 250 ML 250 ML 150 MG IV (18:12)
[2024-07-26] MEDS: traMADol HCL 50 MG TABLET PO ×2 (18:25→23:44)
[2024-07-26 19:10] VITALS: BP 143/70; PULSE 88; RESP 18; O2SAT 94
[2024-07-26 19:48] LABS: Lactic Acid, 3 HR 2.4 mMol/L (0.4-2.0)
[2024-07-26 21:41] VITALS: BP 123/92; PULSE 85; RESP 17; O2SAT 94
[2024-07-26 21:58] VITALS: BP 114/67; PULSE 81; RESP 12; TEMP 37.1; O2SAT 98
--- NOTE | 2024-07-26 22:45 | ESHP_ITS ---
Documentation for date of: 07/26/24 HPI History of Present Illness Chief complaint: Left 5th Toe Pain History of present illness: HPI: Patient is a 74-year-old female with a past medical history significant for insulin-dependent diabetes mellitus type 2, essential hypertension, hyperlipidemia, peripheral arterial disease and hyperthyroidism presenting today with a chief complaints of toe pain. Patient states that approximately 1 month ago her left fifth toe began to hurt. She described this pain as intermittent, cramping, 7/10 in severity when present, no radiation, aggravated by standing or walking and sometimes relieved by tramadol. Patient denied any fever, vomiting, sick contacts, recent travel, diarrhea, dysuria or chest pain. Patient stated that progressively over the course of the month the pain gradually increased and also her toe began to change color and eventually became black. Yesterday prior to admission her home health nurse visited her and suggested she present to the emergency department. Patient also states that she gets leg cramps at night that are relieved by standing. She denies any intermittent claudication and states that she cannot walk far distances anyway. Sometimes she can ambulate independently but other times she requires a walker. Patient said that last year she went to a vascular surgeon for a angiography but he had to stop to procedure early because her blockages were too severe. ED course: BP 114/56, pulse 92, RR 18, temp 98.3 F, SpO2 95% on room air. Labs significant for Hb 12.9, HCT 30.2, corrected NA 141, K4.1, glucose 694. Lactic acid 3.8. On imaging toe x-ray significant for Suspicious on the AP view for cortical bone destruction involving the distal phalanx fifth digit Abdomen CTA significant for 70% stenosis proximal 1 right common iliac artery, 50% stenosis proximal left common iliac artery. Multiple critical stenosis right superficial femoral artery. Occlusion proximal right anterior tibial artery and occlusion right main continuous trunk. Occlusion left superficial femoral artery proximally for 20 cm with multiple critical stenoses in mid and distal left superficial femoral artery. Patient received cefazolin 2 g IV x 1, normal saline 1 L IV fluid bolus, insulin HR 10 units SC x 1, vancomycin 1 g IV x 1 and tramadol 50 Mg p.o. x 1 in the ED Patient will be admitted for treatment and management of gangrene secondary to critical limb ischemia. General surgery, Dr. Matamoros consulted. Appreciate recommendations. Review of Systems Review of Systems Narrative Review of Systems: GENERAL: Denies fever/chills or diaphoresis. HEENT: Denies headaches or visual changes. Denies discharge. Neuro: Denies unusual weakness or difficulty speaking. CARDIO: Denies chest pain or palpitations. PULM: Denies SOB, coughing or wheezing. GI: Denies abdominal pain, N/V/C/D. Reports having BMs. URO: Denies burning/itching/pain/urinary changes. MSK/EXT/SKIN: As Above PSYCH: Cooperative, pleasant mood & affect. The rest of the review of systems is otherwise negative. Past Medical History Past Medical History Comments [facility] COMMENT: Past medical history: ?Insulin-dependent diabetes mellitus type 2 -Diabetic neuropathy ?Essential hypertension ? Hyperlipidemia ? Peripheral arterial disease ? Hyperthyroidism Medication list: ? Tramadol ? Pantoprazole ? Methimazole 5 Mg p.o. daily ? Glipizide 10 Mg p.o. twice daily ? Tramadol 50 Mg p.o. twice daily ? Propranolol 10 Mg p.o. twice daily ? Aspirin 81 Mg p.o. daily Past surgical history: ? Right humerus ORIF ? Right femur ORIF ? Right hip replacement Allergies: NIL Social history: Occupational History: Education Level: Marital Status: with 1 kid Tobacco use: Quit 20 years ago. Previously 50 pack year history ETHO use: Quit 10 years ago. Illicit drug use: Denies. However Utox on previous admission were positive for Methamphetamine and Opiods Social History Note: lives with . Walks independently but sometimes uses a walker Family History: NIL Exam Vital Signs Temp Pulse Resp BP Pulse Ox O2 Del Method 98.7 F 81 12 114/67 98 Room Air 07/26/24 21:58 07/26/24 21:58 07/26/24 21:58 07/26/24 21:58 07/26/24 21:58 07/26/24 21:58 Narrative Exam Constitutional Alert, oriented x 3 and comfortable. Elderly female HEENT Vision grossly intact. Patent nares. Trachea midline Respiratory Chest normal on inspection and clear auscultation bilaterally Cardiovascular S1 and S2 audible, RRR. No murmurs carotid bruit. No gross JVD. Abdominal Soft and non tender to palpation in all quadrants. BS + Genitourinary No bladder tenderness, no flank pain. Normal to palpation Musculoskeletal Extremities tone within normal limits. No LE edema. Absent bilateral lower limb pulses from femoral to dorsalis pedis distally Neurological CN II - XII grossly intact. Absent sensation to light touch on plantar surface of both feet L4/L5 distribution Skin Warm, dry and intact. Black left fifth digit with erythema and dorsal surface of foot around the fourth and fifth digit with minimal pus, 2 x 2 circular area of necrosis on left heel. Psychiatric Patient has good affect, is cooperative Results: Labs 07/26/24 14:56 07/26/24 14:56 Labs: Short CBC 07/26/24 Range/Units 14:56 WBC 10.8 (3.6-11.0) Thou/mm3 Hgb 12.9 (12.0-16.0) g/dL Hct 38.2 (36.0-46.0) % Plt Count 354 (140-440) Thou/mm3 BMP 07/26/24 14:56 Sodium 127 L Potassium 4.1 Chloride 91 L Carbon Dioxide 25.7 BUN 14 Creatinine 1.2 Glucose 694 H* Calcium 9.8 Liver Function 07/26/24 Range/Units 14:56 Total Bilirubin 0.3 (0.3-1.2) mg/dL AST < 10 (0-34) U/L ALT 9 L (10-49) U/L Alkaline Phosphatase 170 H (46-116) U/L Albumin 4.3 (3.4-4.8) gm/dL Quality Measures Quality Measures none Advance care planning discussed with:: patient Medications Home Medications and Allergies Home Medications ?Medication ?Instructions ?Recorded ?Confirmed ?Type glipizide 10 mg tablet 10 mg PO BID #0 tabs 11/24/16 02/14/24 History lisinopril 20 mg tablet 20 mg PO QDAY 06/10/19 02/14/24 History furosemide 20 mg tablet 20 mg PO QAM 09/09/20 02/14/24 History insulin detemir U-100 100 unit/mL 60 unit subcut QDAY 09/09/20 02/15/24 History (3 mL) subcutaneous pen (Levemir FlexTouch U-100 Insulin) vitamin B comp no.3-folic acid 1 1 tab PO DAILY 09/09/20 02/14/24 History mg-vit C 60 mg-biotin 300 mcg tablet ([facility]) atorvastatin 40 mg tablet 40 mg PO DAILY 02/14/24 02/14/24 History famotidine 40 mg tablet 40 mg PO HS 02/14/24 02/14/24 History methimazole 5 mg tablet 5 mg PO DAILY 02/14/24 02/14/24 History pantoprazole 40 mg tablet,delayed 40 mg PO DAILY 02/14/24 02/14/24 History release propranolol 10 mg tablet 10 mg PO BID 02/14/24 02/14/24 History methocarbamol 750 mg tablet 750 mg PO 4XD 02/15/24 02/15/24 History Allergies Allergy/AdvReac Type Severity Reaction Status Date / Time No Known Allergies Allergy Verified 09/09/20 06:31 Visit Medications Acetaminophen (Acetaminophen 325 Mg Tablet) 650 mg PO Q6H PRN PRN Reason: Fever >100.3 or pain Stop: 08/25/24 22:29 Dextrose (Dextrose 50%-Water Inj 50 Ml Syringe) 50 ml IV Q15MIN PRN PRN Reason: BG <50 OR BG <70 & pt unresponsive Stop: 08/25/24 22:35 Glucagon (Glucagon Inj 1 Mg Vial) 1 mg IM Q15MIN PRN PRN Reason: BG <70, and no IV access Hydralazine HCl (Hydralazine Inj 20 Mg/Ml Vial) 5 mg IV Q6HR PRN PRN Reason: SBP > 170 Stop: 08/25/24 22:42 Doxycycline Hyclate 100 mg/ (Sodium Chloride) 100 mls @ 100 mls/hr IV BID [facility] Stop: 08/03/24 08:59 Piperacillin Sod/Tazobactam (Sod 2.25 gm/ Sodium Chloride) 50 mls @ 100 mls/hr IV Q6HR [facility] Stop: 08/02/24 22:41 Insulin Human Lispro (Insulin Lispro (Admelog) 1 Unit/0.01 Ml Unit) 0 unit SC [facility]; Protocol Stop: 08/26/24 07:29 Morphine Sulfate (Morphine Sulf Inj 10 Mg/Ml Vial) 2 mg IVP Q4H PRN PRN Reason: BREAKTHROUGH PAIN Stop: 07/31/24 22:32 Ondansetron HCl (Ondansetron Inj 2 Mg/Ml Inj 2 Ml) 4 mg IV Q6H PRN; Protocol PRN Reason: NAUSEA OR VOMITING Stop: 08/25/24 22:29 Pantoprazole Sodium (Pantoprazole 40 Mg Tablet) 40 mg PO QDAY [facility] Stop: 08/26/24 08:59 Sennosides (Senna Tablet) 1 tab PO QDAY [facility]; Protocol Stop: 08/26/24 08:59 Tramadol HCl (Tramadol Hcl 50 Mg Tablet) 50 mg PO Q6HR PRN PRN Reason: PAIN SCALE 4-10(Mod-Sev Stop: 07/31/24 22:32 Discontinued Medications Cefazolin Sodium (Ancef 2gm Ivpb) 2 gm in 100 mls @ 200 mls/hr IV X1 ONE Stop: 07/26/24 16:37 Last Infusion: 07/26/24 18:12 Dose: Infused Vancomycin HCl 1,000 mg/ (Sodium Chloride) 250 mls @ 150 mls/hr IV X1 ONE Stop: 07/26/24 17:48 Last Infusion: 07/26/24 19:58 Dose: Infused Sodium Chloride (Ns) 1,000 mls @ 999 mls/hr IV .Q1H1M ONE Stop: 07/26/24 17:09 Last Infusion: 07/26/24 18:29 Dose: Infused Insulin Glargine (Insulin Glargine (Lantus) 5 Unit/0.05 Ml (Per 5 Units)) 40 unit SC X1 ONE Stop: 07/26/24 22:39 Insulin Human Regular (Insulin Hum Regular 1 Unit/0.01 Ml (Per Unit)) 10 unit SC X1 ONE Stop: 07/26/24 16:09 Last Admin: 07/26/24 17:09 Dose: 10 unit Tramadol HCl (Tramadol Hcl 50 Mg Tablet) 50 mg PO X1 ONE Stop: 07/26/24 18:19 Last Admin: 07/26/24 18:25 Dose: 50 mg Assessment & Plan Plan Patient is a 74-year-old female with a past medical history significant for insulin-dependent diabetes mellitus type 2, essential hypertension, hyperlipidemia, peripheral arterial disease and hyperthyroidism presenting today with a chief complaints of toe pain. Patient will be admitted for treatment and management of gangrene secondary to critical limb ischemia. 1. Gangrene secondary to critical limb ischemia 2. Left fifth toe osteomyelitis 3. Peripheral arterial disease Patient presented with a black appearing left fifth digit. Abdomen CTA significant for 70% stenosis proximal 1 right common iliac artery, 50% stenosis proximal left common iliac artery. Multiple critical stenosis right superficial femoral artery. Occlusion proximal right anterior tibial artery and occlusion right main continuous trunk. Occlusion left superficial femoral artery proximally for 20 cm with multiple critical stenoses in mid and distal left superficial femoral artery. Plan: ? N.p.o. after midnight ? Started on ceftriaxone 1 g IV daily on [07/27? ? Started on doxycycline 100 Mg IV twice daily on [07/27? ? Tramadol 50 Mg p.o. every 6 hourly as needed for pain ? Morphine 2 Mg IV every 4 hourly as needed for breakthrough pain ? Wound care ? General Surgery, Dr. Matamoros consulted. Appreciate recommendations 4. Uncontrolled insulin-dependent diabetes mellitus type 2 5. Lactic acidosis 6. Pseudo hyponatremia Last HbA1c from February 2024, 11.2. Patient states her home medication is insulin glargine 60 units SC daily. On admission glucose 694 and NA 127. Corrected NA 141 Lactic acidosis most likely secondary to uncontrolled blood sugars In the ED patient received 1 L normal saline IV fluid bolus and 10 units insulin HR SC x 1. Plan: ? HbA1c ordered ? Repeat lactic acid in the a.m. ? Insulin glargine 40 units SC x 1 ? Insulin sliding scale to cover for any blood glucose spikes 7. Chronic kidney disease stage IIIa On admission CR 1.2 which appears to be baseline Plan: ? Renally dose medications ? Avoid nephrotoxic drugs 8. Essential hypertension 9. Hyperlipidemia On admission BP 114/56. Awaiting reconciliation for home medication. Plan: ? Day team to decide on resumption of antihypertensives 10. Hyperthyroidism Patient's home medication methimazole 5 Mg p.o. daily and propranolol 10 Mg p.o. twice daily Plan: ? Resumed home medication methimazole 5 Mg p.o. daily ? Propranolol not available in hospital Health maintenance: Disposition: IV antibiotics. General Surgery consult Diet: NPO after Midnight Lines: pIVs GI Prophylaxis: Pantoprazole Thrombo Prophylaxis: None Code status: FULL CODE Plan of care discussed with Attending Dr. Vikas Cook MD PGY 1 Attending Provider Attestation/Addendum I have discussed and was present for the essential components of the history, physical examination, diagnosis, and treatment plan with the resident. I agree with the patient's care as documented by the resident and amended herein by me. Paco Bean DO. Patient seen and evaluated in the ED. In short, 74-year-old female with significant past medical history of methamphetamine abuse, diabetes, hypertension, esophageal ulcers and hemorrhoids, presented to the ED for worsening left fifth toe pain and swelling. Patient subsequently found to have what appears to be a gangrenous left fifth toe with associated osteomyelitis, patient admitted for further workup and evaluation. In the ED, vital signs stable, patient afebrile on arrival, CBC unremarkable, BMP significant for a blood glucose of 694 and a sodium of 127. Lactate also elevated 2.4, CRP 5.1. An abdominal CTA significant for a right common iliac artery stenosis of 70% and a left common iliac artery stenosis of 50% with total occlusion of the left posterior tibial artery. In the ED, the patient was given cefazolin and vancomycin. At this time we will admit the patient to [facility], will start ceftriaxone and doxycycline for now, general surgery consulted for possible amputation, n.p.o. after midnight, Lantus and sliding scale insulin given, repeat lactate order and wound care also ordered. Will continue to monitor closely, appreciate general surgery recommendations. Although this document has been carefully reviewed, there may still be some phonetic and other typographical errors. These errors are purely grammatical due to imperfections in the software program and should not be construed in any way to compromise the substance of the patient's medical care during this visit.
--- NOTE | 2024-07-26 23:05 | PC.NURSE ---
REPORT GIVEN TO MOHAMUD CAMILO AT [facility].
[2024-07-26 23:28] VITALS: BMI 18.7
[2024-07-26] MEDS: PIPERACILLIN/TAZO 2.25GM INJ 2.25 GM in SODIUM CHLORIDE 0.9% (P) 50 ML IV (23:46)
[2024-07-27] VITALS (13 sets, daily range): BP systolic 107–134; BP diastolic 58–81; PULSE 82–100; RESP 14–95; TEMP 36.2–36.9; O2SAT 93–99; BMI 18.6
[2024-07-27] MEDS: DOXYCYCLINE INJ 100 MG in SODIUM CHLORIDE 0.9% (P) 100 ML IV ×3 (00:44→20:29)
[2024-07-27 05:05] LABS: Lactate (Lactic Acid) 1.3 mMol/L (0.4-2.0)
[2024-07-27 05:10] LABS: Basophils # (Auto) 0.1 Thou/mm3 (0.0-0.2); Basophils % (Auto) 1 % (0-2.5); Eosinophils # (Auto) 0.7 Thou/mm3 (0.0-0.5); Eosinophils % (Auto) 6 % (0-10); Hematocrit 41.4 % (36.0-46.0); Hemoglobin 13.9 g/dL (12.0-16.0); Immature Granulocytes % (Auto) 0 % (0-0); Immature Granulocytes Auto 0.05 Thou/mm3 (0.00-0.00); Lymphocytes # (Auto) 4.1 Thou/mm3 (1.0-4.8); Lymphocytes % (Auto) 33 % (10-50); Mean Corpuscular HGB Conc 33.6 g/dl (31.0-37.0); Mean Corpuscular Hemoglobin 28.9 pg (25.0-35.0); Mean Corpuscular Volume 86 fL (80-100); Monocytes # (Auto) 1.3 Thou/mm3 (0.0-0.8); Monocytes % (Auto) 11 % (0-12); Neutrophils # (Auto) 6.1 Thou/mm3 (1.8-7.7); Neutrophils % (Auto) 49 % (37-80); Nucleated Red Blood Cell % 0 /100 WBC (0); Platelet Count 318 Thou/mm3 (140-440); Red Blood Count 4.81 Miln/mm3 (4.00-5.20); White Blood Count 12.4 Thou/mm3 (3.6-11.0)
[2024-07-27 05:28] LABS: INR 0.9 (0.9-1.3); Partial Thromboplastin Time 22.5 Seconds (22.0-36.0); Prothrombin Time 10.3 Seconds (9.0-12.2)
[2024-07-27 05:34] LABS: Glucose Estimated Average 349 mg/dL (80-131); Hemoglobin A1C 13.8 % Hgb (4.8-6.0)
[2024-07-27 05:51] LABS: Alanine Aminotransferase 8 U/L (10-49); Albumin, Serum 4.3 gm/dL (3.4-4.8); Albumin/Globulin Ratio 1.7 (1.2-2.2); Alkaline Phosphatase 157 U/L (46-116); Anion Gap 10 (7-16); Aspartate Amino Transferase 16 U/L (0-34); BUN/Creatinine Ratio 13 Ratio (12-20); Bilirubin,Total 0.2 mg/dL (0.3-1.2); Blood Urea Nitrogen 9 mg/dL (9-23); Calcium 9.6 mg/dL (8.3-10.6); Calcium (Corrected) 9.6 mg/dL (8.5-10.1); Carbon Dioxide 27.7 mMol/L (20.0-31.0); Cardiac Risk Estimate 3.7 RATIO (3.7-5.6); Chloride 99 mMol/L (98-107); Cholesterol 171 mg/dL (132-200); Creatinine (Component) 0.7 mg/dL (0.6-1.3); Estimated Creatinine Clearance 60.3 mL/min (>60); Globulin 2.6 gm/dL (2.3-3.5); Glucose 149 mg/dL (74-106); HDL Cholesterol 46 mg/dL (40-60); LDL Cholesterol,Calculated 86 mg/dL (0-130); Magnesium 1.8 mg/dL (1.6-2.6); Osmolality,Calculated 275 (275-295); Phosphorous 3.4 mg/dL (2.4-5.1); Potassium 3.9 mMol/L (3.4-5.1); Sodium 137 mMol/L (136-145); Thyroid Stimulating Hormone 2.71 uIU/mL (0.55-4.78); Total Protein 6.9 gm/dL (5.7-8.2); Triglycerides 193 mg/dL (30-150); eGFR > 60 See Note
[2024-07-27] MEDS: traMADol HCL 50 MG TABLET PO ×2 (06:58→17:56)
[2024-07-27] MEDS: cefTRIAXone/D5w 1gm IV premix 50 ML IV (08:49)
--- NOTE | 2024-07-27 10:26 | PD.SURCONS ---
HPI Consult details History of present illness: 74F with HTN, HLD, PAD, DMII (A1c 13.8) admitted with left fifth toe pain. Pt reports she has been having pain for the past month, associated with discoloration which worsened. Yesterday she was advised by her home health RN to seek care in ER. Pt underwent CTA showing bilateral occlusive disease as well as xray suggestive of left 5th toe osteomyelitis PMH: HTN, HLD, PAD, DMII PShx: Cholecystectomy, hip replacement Meds: No antiplt or anticoagulation Allergies: NKDA Social hx: Nonsmoker, states she is able to ambulate Review of Systems Review of Systems ROS Unobtainable: All systems reviewed & no additional complaints except as documented Meds Home Medications and Allergies Home Medications ?Medication ?Instructions ?Recorded ?Confirmed ?Type glipizide 10 mg tablet 10 mg PO BID #0 tabs 11/24/16 07/27/24 History lisinopril 20 mg tablet 20 mg PO QDAY 06/10/19 07/27/24 History furosemide 20 mg tablet 20 mg PO QAM 09/09/20 07/27/24 History insulin detemir U-100 100 unit/mL 60 unit subcut QDAY 09/09/20 07/27/24 History (3 mL) subcutaneous pen (Levemir FlexTouch U-100 Insulin) atorvastatin 40 mg tablet 40 mg PO DAILY 02/14/24 07/27/24 History famotidine 40 mg tablet 40 mg PO HS 02/14/24 07/27/24 History methimazole 5 mg tablet 5 mg PO DAILY 02/14/24 07/27/24 History pantoprazole 40 mg tablet,delayed 40 mg PO DAILY 02/14/24 07/27/24 History release propranolol 10 mg tablet 10 mg PO BID 02/14/24 07/27/24 History methocarbamol 750 mg tablet 750 mg PO 4XD 02/15/24 07/27/24 History Allergies Allergy/AdvReac Type Severity Reaction Status Date / Time No Known Allergies Allergy Verified 09/09/20 06:31 Exam Vital Signs Temp Pulse Resp BP Pulse Ox O2 Del Method 98.0 F 88 18 107/58 L 97 Room Air 07/27/24 08:00 07/27/24 09:08 07/27/24 09:08 07/27/24 08:00 07/27/24 08:00 07/27/24 08:00 Constitutional Constitutional: no acute distress Routine Respiratory Exam Respiratory: Absent respiratory distress Routine Extremities Exam Comments: left foot warm, 5th toe gangrenous and black eschar of heel Results Results: Laboratory Laboratory results: results reviewed Results: Imaging Imaging narrative: Foot xray, CTA reviewed Assessment & Plan Plan 74F with HTN, HLD, DMII, PAD presenting with gangrene of left 5th toe associated with likely osteomyelitis, and a heel wound. I explained that her toe is not salvageable and recommended amputation, as well as excisional debridement of the heel. I explained risks of bleeding and infection and that controlling glucose is crtical for wound healing. All questions were answered and pt is agreeable to proceeding
[2024-07-27 11:24] LABS: Amphetamine/Methamp Scrn,U Negative (Negative); Barbiturate Screen,Urine Negative (Negative); Benzodiazepines Screen,Urine Negative (Negative); Benzoylecgonine Screen, Ur Negative (Negative); Fentanyl Screen,Urine Negative (Negative); Opiate Screen,Urine Negative (Negative); THC Screen,Urine Positive (Negative)
--- NOTE | 2024-07-27 12:12 | ESOP_ITS ---
Date of Procedure 07/27/24 Pre Op Diagnosis Gangrenous left fifth toe, eschar of left heel Post Op Diagnosis Same Procedure Left fifth toe amputation, excisional debridement of left heel Findings Gangrenous left fifth toe, eschar of left heel Procedure Description After discussion of risks and benefits, patient was brought to the operating room and MAC anesthesia was induced. She received a digital and he will block and was prepped and draped in the usual sterile fashion. After timeout the left fifth toe was amputated using electrocautery. The bone was filed for a smooth edge and there was very minimal bleeding. The necrotic skin of left heel was excised to the level of subcutaneous tissue using electrocautery. Again there was little to no bleeding. Wounds were irrigated with saline and no bleeding was observed at the end of the case. The wounds were covered with Adaptic, fluffs and Kerlix. Patient was awoken and brought to PACU in stable condition Pathology / specimen Other (Left fifth toe) Estimated Blood Loss 1 Surgeon Adilene Matamoros MD Surgical Staff Operation Date: 07/27/24 11:00 Case Staff Anesthesiologist: Daniel Poe RNunder seal operator: Tiffani Alexis
--- NOTE | 2024-07-27 12:30 | PC.DIETICIAN ---
1. When indicated: Consistent Carb low diet and add 2-3 oz extra protein per meal. 2. Prostat SF 30mL BID with lunch and dinner. 3. Diabetes Education to be provided at a more appropriate time. RD to remain available as requested or needed.
--- NOTE | 2024-07-27 12:42 | SUR.PHASEI ---
1211 To PACU able to lift head off of pillow following simple commands continue to monitor pt vital signs and status.
--- NOTE | 2024-07-27 12:56 | PD.ANESPROG ---
Documentation for date of: 07/27/24 ANESTHESIA NOTE: Patient had L ankle and heel block and monitored sedation for L 5th toe amputation and L heel debridement. Pre-op, she has h/o DM, HTN, PAD, and had gangrenous L 5th toe and dressing over L heel with wound underneath and endorsed pain. She did well intra-op and has been in PACU post op doing well, resting, NAD, VSS. Glu 252. Will defer further management to the primary/floor team including resuming her beta constantin unless contraindicated. Daniel Poe MD Anesthesia Progress Note Progress Note Most recent Vital Signs: Last Vital Signs Temp 97.7 F 07/27/24 12:11 Pulse 91 07/27/24 12:11 Resp 16 07/27/24 12:11 BP 115/62 07/27/24 12:11 Pulse Ox 94 L 07/27/24 12:11 O2 Del Method Room Air 07/27/24 08:00 O2 Flow Rate 6 07/27/24 12:11
--- NOTE | 2024-07-27 13:07 | SUR.PHASEI ---
1300 Transfer to room 371 in stable condition no complaints, no s/s of distress noted, no change to right foot dressing.
--- NOTE | 2024-07-27 13:22 | SUR.PHASEI ---
1300 Transfer to room 371 in stable condition, no complaints, no s/s of distress noted, no change to left foot dressing.
--- NOTE | 2024-07-27 13:41 | PC.SS ---
Zuleika Michelle is 74-year-old female admitted to [facility] for Gangrene L 5th Digit. SS conducted bedside contact with the patient to complete initial assessment and to discuss discharge planning. Patient confirmed demographic information. Patient identifies her Melvin Michelle [phone] as her surrogate decision maker. Patient resides at home with her . Pt states she is able to complete all ADL?s independently; pt does have a jamie-walker if needed at home. Pts PCP is Dr. Morris at [facility] and her pharmacy of choice is [facility] in [place]. DC options discussed and pt wishes to return home. Pts dtr will provide transportation upon DC. No further intervention required at this time, executive secretary social welfare would be available to address any further concerns. DC Plan: Home Contact: PCP: Arturo
--- NOTE | 2024-07-27 14:09 | PD.RESPRO ---
Documentation for date of: 07/27/24 Subjective Subjective Interval history: Patient seen today at the bedside fine awake, alert, oriented x 3. No overnight events reported. States no active complaints at this time. Patient had CTA done showing 70% right iliac stenosis 50% left iliac stenosis and total occlusion of the left posterior tibial artery. Patient was admitted for gangrene of the right lower extremity fifth digit will undergo debridement with by general surgery, Dr. Matamoros. Exam Vital Signs Temp Pulse Resp BP Pulse Ox O2 Del Method O2 Flow Rate 97.5 F 82 17 134/70 H 96 Room Air 2 07/27/24 12:50 07/27/24 12:50 07/27/24 12:50 07/27/24 12:50 07/27/24 12:50 07/27/24 08:00 07/27/24 12:20 Narrative Exam Physical Exam GENERAL: NAD, AAOx3 HEENT: Moist mucosa. Eyes open, symmetrical, & clear CARDIO: Heart RRR, no obvious murmurs PULM: No noted coughing/dyspnea CTA B/L, no R/W/R GI: Abdomen soft, nondistended, no pain on palpation. BSx4 SKIN/MSK/EXT: Black left fifth digit with erythema and dorsal surface of foot around the fourth and fifth digit with minimal pus, 2 x 2 circular area of necrosis on left heel. no pain on palpation. Pedal pulses nonpalpable bilaterally NEURO: AAOx3, no focal neuro deficits, able to move all 4 extremities Objective Labs 07/28/24 05:04 07/28/24 05:04 Labs: Laboratory Results - last 24 hr 07/26/24 07/26/24 07/27/24 14:56 19:42 04:54 WBC 10.8 12.4 H RBC 4.46 4.81 Hgb 12.9 13.9 Hct 38.2 41.4 MCV 86 86 MCH 28.9 28.9 MCHC 33.8 33.6 RDW Std Deviation 40.3 41.0 Plt Count 354 318 D Neut % (Auto) 68 49 Lymph % (Auto) 20 33 Payne % (Auto) 8 11 Eos % (Auto) 3 6 Baso % (Auto) 1 1 Neut # (Auto) 7.4 6.1 Lymph # (Auto) 2.2 4.1 Payne # (Auto) 0.8 1.3 H Eos # (Auto) 0.3 0.7 H Baso # (Auto) 0.1 0.1 Immature Gran # (Auto) 0.05 H 0.05 H Absolute Nucleated RBC 0.00 0.00 Immature Gran % 1 H 0 Nucleated RBC % 0 0 ESR 87 H PT 10.3 INR 0.9 APTT 22.5 Sodium 127 L 137 D Potassium 4.1 3.9 Chloride 91 L 99 Carbon Dioxide 25.7 27.7 Anion Gap 10 10 BUN 14 9 Creatinine 1.2 0.7 D Estim Creat Clear Calc 37.9 L 60.3 L eGFR 48 L > 60 BUN/Creatinine Ratio 12 13 Glucose 694 H* [address] Glu mg/dL 349 H Hemoglobin A1c 13.8 H Calculated Osmolality 288 275 Lactic Acid 3.8 H 2.4 H 1.3 Calcium 9.8 9.6 Corrected Calcium 9.8 9.6 Phosphorus 3.4 Magnesium 1.8 Total Bilirubin 0.3 0.2 L AST < 10 16 ALT 9 L 8 L Alkaline Phosphatase 170 H 157 H C-Reactive Prot, Quant 5.1 H Total Protein 7.2 6.9 Albumin 4.3 4.3 Globulin 2.9 2.6 Albumin/Globulin Ratio 1.5 1.7 Triglycerides 193 H Cholesterol 171 LDL Cholesterol, Calc 86 HDL Cholesterol 46 Cholesterol/HDL Ratio 3.7 Lipase 37 Procalcitonin 0.14 TSH 2.71 Urine Opiates Screen Urine Fentanyl Screen Ur Barbiturates Screen U Amphetamin/Meth Scrn U Benzodiazepines Scrn U Cocaine Metab Screen U Marijuana (THC) Screen 07/27/24 10:20 WBC RBC Hgb Hct MCV MCH MCHC RDW Std Deviation Plt Count Neut % (Auto) Lymph % (Auto) Payne % (Auto) Eos % (Auto) Baso % (Auto) Neut # (Auto) Lymph # (Auto) Payne # (Auto) Eos # (Auto) Baso # (Auto) Immature Gran # (Auto) Absolute Nucleated RBC Immature Gran % Nucleated RBC % ESR PT INR APTT Sodium Potassium Chloride Carbon Dioxide Anion Gap BUN Creatinine Estim Creat Clear Calc eGFR BUN/Creatinine Ratio Glucose Estimated Ave Glu mg/dL Hemoglobin A1c Calculated Osmolality Lactic Acid Calcium Corrected Calcium Phosphorus Magnesium Total Bilirubin AST ALT Alkaline Phosphatase C-Reactive Prot, Quant Total Protein Albumin Globulin Albumin/Globulin Ratio Triglycerides Cholesterol LDL Cholesterol, Calc HDL Cholesterol Cholesterol/HDL Ratio Lipase Procalcitonin TSH Urine Opiates Screen Negative Urine Fentanyl Screen Negative Ur Barbiturates Screen Negative U Amphetamin/Meth Scrn Negative U Benzodiazepines Scrn Negative U Cocaine Metab Screen Negative U Marijuana (THC) Screen Positive A Quality Measures Quality Measures none Advance care planning discussed with:: patient Assessment & Plan Assessment Current Active Medications: Generic Name Dose Route Start Last Admin Trade Name Freq PRN Reason Stop Dose Admin Acetaminophen 650 mg 07/26/24 22:30 Acetaminophen 325 Mg Tablet PO 08/25/24 22:29 Q6H PRN Fever >100.3 or pain Dextrose 50 ml 07/26/24 22:36 Dextrose 50%-Water Inj 50 Ml Syringe IV 08/25/24 22:35 Q15MIN PRN BG <50 OR BG <70 & pt unresponsive Glucagon 1 mg 07/26/24 22:36 Glucagon Inj 1 Mg Vial IM Q15MIN PRN BG <70, and no IV access Hydralazine HCl 5 mg 07/26/24 22:43 Hydralazine Inj 20 Mg/Ml Vial IV 08/25/24 22:42 Q6HR PRN SBP > 170 Doxycycline Hyclate 100 mg/ 100 mls @ 100 mls/hr 07/27/24 09:00 07/27/24 10:16 Sodium Chloride IV 08/03/24 08:59 100 mls/hr BID VENU Administration Ceftriaxone Sodium/Dextrose 50 mls @ 100 mls/hr 07/27/24 09:00 07/27/24 08:49 Rocephin/D5w 1gm Iv Premix IV 08/03/24 08:59 100 mls/hr QDAY VENU Administration Insulin Human Lispro 0 unit 07/27/24 06:00 07/27/24 05:10 Insulin Lispro (Admelog) 1 Unit/0.01 Ml Unit SC 08/26/24 05:59 Not Given Q6HR VENU Protocol Methimazole 5 mg 07/27/24 09:00 Methimazole 5 Mg Tablet PO 08/26/24 08:59 DAILY VENU Morphine Sulfate 2 mg 07/27/24 11:00 Morphine Sulf Inj 10 Mg/Ml Vial IVP 07/31/24 22:32 Q4H PRN BREAKTHROUGH PAIN Ondansetron HCl 4 mg 07/26/24 22:30 Ondansetron Inj 2 Mg/Ml Inj 2 Ml IV 08/25/24 22:29 Q6H PRN NAUSEA OR VOMITING Protocol Pantoprazole Sodium 40 mg 07/27/24 09:00 Pantoprazole 40 Mg Tablet PO 08/26/24 08:59 QDAY [facility] Sennosides 1 tab 07/27/24 09:00 Senna Tablet PO 08/26/24 08:59 QDAY [facility] Protocol Tramadol HCl 50 mg 07/26/24 22:33 07/27/24 06:58 Tramadol Hcl 50 Mg Tablet PO 07/31/24 22:32 50 mg Q6HR PRN Administration PAIN SCALE 4-10(Mod-Sev Plan Patient is a 74-year-old female with a past medical history significant for insulin-dependent diabetes mellitus type 2, essential hypertension, hyperlipidemia, peripheral arterial disease and hyperthyroidism presenting today with a chief complaints of toe pain. Patient will be admitted for treatment and management of gangrene secondary to critical limb ischemia. #Gangrene secondary to critical limb ischemia #Left fifth toe osteomyelitis #Peripheral arterial disease Patient presented with a black appearing left fifth digit. Abdomen CTA significant for 70% stenosis proximal 1 right common iliac artery, 50% stenosis proximal left common iliac artery. Multiple critical stenosis right superficial femoral artery. Occlusion proximal right anterior tibial artery and occlusion right main continuous trunk. Occlusion left superficial femoral artery proximally for 20 cm with multiple critical stenoses in mid and distal left superficial femoral artery. -Pending surgery Dr. Matamoros today ? N.p.o. ? on ceftriaxone 1 g IV daily on [07/27? ? on doxycycline 100 Mg IV twice daily on [07/27? ? Tramadol 50 Mg p.o. every 6 hourly as needed for pain ? Morphine 2 Mg IV every 4 hourly as needed for breakthrough pain ? Wound care ? General Surgery, Dr. Matamoros consulted. Appreciate recommendations #Uncontrolled insulin-dependent diabetes mellitus type 2 #Lactic acidosis-resolved #Pseudo hyponatremia A1c 13.8 Patient states her home medication is insulin glargine 60 units SC daily. On admission glucose 694 and NA 127. Corrected NA 141 Lactic acidosis most likely secondary to uncontrolled blood sugars In the ED patient received 1 L normal saline IV fluid bolus and 10 units insulin HR SC x 1. ? Insulin glargine 40 units SC x 1 ? SSI -Hypoglycemia protocol in place #Chronic kidney disease stage IIIa On admission CR 1.2 which appears to be baseline ? Renally dose medications ? Avoid nephrotoxic drugs #Essential hypertension #Hyperlipidemia On admission BP 114/56. -Resumed lisinopril 20 mg daily as taken at home -Started Lasix 20 mg daily starting tomorrow -Resumed atorvastatin 40 mg a day #Hyperthyroidism Patient's home medication methimazole 5 Mg p.o. daily and propranolol 10 Mg p.o. twice daily ? Resumed home medication methimazole 5 Mg p.o. daily ? Propranolol not available in hospital Case discussed with my attending Dr. Talita Morris MD PGY-1 Disposition: MedSurg Fluids: None Feeding: N.p.o. for procedure Thrombo prophylaxis: None Gastric Ulcer prophylaxis: Pantoprazole CODE STATUS: Full code Attending Provider Attestation/Addendum 74-year-old female with multiple comorbidities including type 2 diabetes mellitus on insulin, hypertension, hyperlipidemia, hypothyroidism and peripheral arterial disease who presented to the ER with left foot pain found to have gangrene and subsequently started on IV antibiotic therapy and surgery for amputation. Continue IV antibiotics and appreciate surgical inputs. I reviewed above note and agree with findings and plans. I have also personally examined the patient with medicine team and went over assessment and plan with medical team including internet architect and resident physician.
[2024-07-27] MEDS: METHIMAZOLE 5 MG TABLET PO (15:16)
[2024-07-27] MEDS: SENNA TABLET 1 TAB PO (15:17)
[2024-07-27] MEDS: Lisinopril 20 MG TABLET PO (15:17)
[2024-07-27] MEDS: PANTOPRAZOLE 40 MG TABLET PO (15:18)
[2024-07-27] MEDS: INSULIN LISPRO (AdmeLOG) 1 UNIT/0.01 ML UNIT SC ×2 (17:56→20:35)
[2024-07-27] MEDS: MORPHINE SULF INJ 10 MG/ML VIAL 2 MG IVP (20:29)
[2024-07-28] VITALS (8 sets, daily range): BP systolic 98–124; BP diastolic 58–89; PULSE 80–110; RESP 16–95; TEMP 36.3–37.2; O2SAT 92–99
[2024-07-28 06:19] LABS: Basophils # (Auto) 0.1 Thou/mm3 (0.0-0.2); Basophils % (Auto) 1 % (0-2.5); Eosinophils # (Auto) 0.5 Thou/mm3 (0.0-0.5); Eosinophils % (Auto) 4 % (0-10); Hematocrit 38.1 % (36.0-46.0); Hemoglobin 12.5 g/dL (12.0-16.0); Immature Granulocytes % (Auto) 1 % (0-0); Immature Granulocytes Auto 0.05 Thou/mm3 (0.00-0.00); Lymphocytes # (Auto) 2.5 Thou/mm3 (1.0-4.8); Lymphocytes % (Auto) 23 % (10-50); Mean Corpuscular HGB Conc 32.8 g/dl (31.0-37.0); Mean Corpuscular Hemoglobin 28.6 pg (25.0-35.0); Mean Corpuscular Volume 87 fL (80-100); Monocytes % (Auto) 10 % (0-12); Neutrophils # (Auto) 6.5 Thou/mm3 (1.8-7.7); Neutrophils % (Auto) 61 % (37-80); Nucleated Red Blood Cell % 0 /100 WBC (0); Platelet Count 347 Thou/mm3 (140-440); RDW Standard Deviation 42.1 fL (36.4-46.3); Red Blood Count 4.37 Miln/mm3 (4.00-5.20); White Blood Count 10.6 Thou/mm3 (3.6-11.0)
[2024-07-28 07:02] LABS: Alanine Aminotransferase < 7 U/L (10-49); Albumin, Serum 3.9 gm/dL (3.4-4.8); Albumin/Globulin Ratio 1.6 (1.2-2.2); Alkaline Phosphatase 145 U/L (46-116); Anion Gap 10 (7-16); Aspartate Amino Transferase < 10 U/L (0-34); BUN/Creatinine Ratio 13 Ratio (12-20); Bilirubin,Total 0.2 mg/dL (0.3-1.2); Blood Urea Nitrogen 9 mg/dL (9-23); Calcium 9.4 mg/dL (8.3-10.6); Calcium (Corrected) 9.5 mg/dL (8.5-10.1); Carbon Dioxide 26.5 mMol/L (20.0-31.0); Chloride 101 mMol/L (98-107); Creatinine (Component) 0.7 mg/dL (0.6-1.3); Estimated Creatinine Clearance 60.3 mL/min (>60); Globulin 2.4 gm/dL (2.3-3.5); Glucose 228 mg/dL (74-106); Magnesium 1.7 mg/dL (1.6-2.6); Osmolality,Calculated 279 (275-295); Potassium 3.6 mMol/L (3.4-5.1); Sodium 137 mMol/L (136-145); Total Protein 6.3 gm/dL (5.7-8.2); eGFR > 60 See Note
[2024-07-28] MEDS: MORPHINE SULF INJ 10 MG/ML VIAL 2 MG IVP ×4 (07:54→22:41)
[2024-07-28] MEDS: cefTRIAXone/D5w 1gm IV premix 50 ML IV (08:32)
[2024-07-28] MEDS: INSULIN LISPRO (AdmeLOG) 1 UNIT/0.01 ML UNIT SC ×4 (08:32→20:35)
[2024-07-28] MEDS: ATORVASTATIN CALCIUM 20 MG TABLET 40 MG PO (08:32)
[2024-07-28] MEDS: METHIMAZOLE 5 MG TABLET PO (08:33)
[2024-07-28] MEDS: PANTOPRAZOLE 40 MG TABLET PO (08:33)
[2024-07-28] MEDS: Furosemide 20 MG TABLET PO (08:33)
[2024-07-28] MEDS: SENNA TABLET 1 TAB PO (08:33)
[2024-07-28] MEDS: Lisinopril 20 MG TABLET PO (08:33)
--- NOTE | 2024-07-28 09:21 | ESPR_ITS ---
Documentation for date of: 07/28/24 Subjective - Hospitalist Subjective Interval history: Patient s/p left fifth toe amputation and excision debridement of the left heel. Patient states that his pain is tolerated by current pain regiment. Blood sugar high in the 300s this morning. Review of Systems Review of Systems Narrative Review of Systems: General: Denies fevers or chills. Heart: Denies chest pain or palpitation Lungs: Denies shortness of breath or cough . Abdomen: Denies diarrhea, constipation, bright red blood per rectum or melena. Neurology: Denies any changes in vision, weakness or difficulty speaking. The rest of review of system is otherwise negative except what is mentioned above Exam Vital Signs Temp Pulse Resp BP Pulse Ox O2 Del Method O2 Flow Rate 98.5 F 96 19 115/61 96 Room Air 2 07/28/24 08:00 07/28/24 08:33 07/28/24 08:00 07/28/24 08:33 07/28/24 08:00 07/28/24 04:00 07/27/24 12:20 Narrative Physical Exam: General: Alert and oriented to name, date of and place HEENT: Normocephalic, atraumatic Cardiac: Regular rate and rhythm, no murmurs Lungs: Clear to auscultation with no wheezing or crackles Abdomen: Nondistended, nontender positive bowel sounds. Neurology: Cranial nerves II to XII intact and patient able to move all 4 extremities. Skin: Left foot with dressing. Objective - Hospitalist Labs Diagram: 07/28/24 05:04 07/28/24 05:04 Labs: Laboratory Results - last 24 hr 07/27/24 07/28/24 10:20 05:04 WBC 10.6 RBC 4.37 Hgb 12.5 Hct 38.1 MCV 87 MCH 28.6 MCHC 32.8 RDW Std Deviation 42.1 Plt Count 347 Neut % (Auto) 61 Lymph % (Auto) 23 Hodgeman % (Auto) 10 Eos % (Auto) 4 Baso % (Auto) 1 Neut # (Auto) 6.5 Lymph # (Auto) 2.5 Hodgeman # (Auto) 1.0 H Eos # (Auto) 0.5 Baso # (Auto) 0.1 Immature Gran # (Auto) 0.05 H Absolute Nucleated RBC 0.00 Immature Gran % 1 H Nucleated RBC % 0 Sodium 137 Potassium 3.6 Chloride 101 Carbon Dioxide 26.5 Anion Gap 10 BUN 9 Creatinine 0.7 Estim Creat Clear Calc 60.3 L eGFR > 60 BUN/Creatinine Ratio 13 Glucose 228 H D Calculated Osmolality 279 Calcium 9.4 Corrected Calcium 9.5 Phosphorus 3.0 Magnesium 1.7 Total Bilirubin 0.2 L AST < 10 ALT < 7 L Alkaline Phosphatase 145 H Total Protein 6.3 Albumin 3.9 Globulin 2.4 Albumin/Globulin Ratio 1.6 Urine Opiates Screen Negative Urine Fentanyl Screen Negative Ur Barbiturates Screen Negative U Amphetamin/Meth Scrn Negative U Benzodiazepines Scrn Negative U Cocaine Metab Screen Negative U Marijuana (THC) Screen Positive A Assessment & Plan Patient Synopsis 74-year-old female with multiple comorbidities including type 2 diabetes mellitus on insulin, hypertension, hyperlipidemia, hypothyroidism and peripheral arterial disease who presented to the ER with left foot pain found to have gangrene and subsequently started on IV antibiotic therapy and surgery for amputation. 1. Gangrene left fifth toe 2. Osteomyelitis ? Patient with history of uncontrolled type 2 diabetes mellitus with subsequent peripheral arterial disease presenting with left fifth toe gangrene ? Started on IV antibiotic therapy ? Patient subsequently underwent left fifth toe amputation and excision debridement of the left heel ? Continue IV Rocephin, Doxy, morphine, tramadol pending surgical input ? Plan to continue wound care 3. Extensive peripheral arterial disease ? Patient underwent CTA with runoff and found to have 70% stenosis of right common iliac, 50% stenosis proximal left common iliac artery. Multiple critical stenosis of right superficial femoral artery. Occlusion proximal right anterior tibial artery and occlusion of the right main trunk. Occlusive left superficial femoral artery proximal to 20 cm with multiple critical stenosis in the mid and distal left superficial femoral artery. ? Patient does have pulses ? Will continue to monitor closely for healing ? Will need outpatient vascular intervention 4. Hyperglycemia secondary to uncontrolled type 2 diabetes mellitus ? Hemoglobin A1c 13.8 ? Plan to continue sliding scale insulin and given morning blood sugars being high will initiate insulin 20 mg at bedtime ? Continue to monitor insulin closely and low-carb diet 5. Hyperthyroidism ? Continue methimazole 5 mg daily and once blood blood pressure permit we will add propranolol 6. Hypertension ? Resume lisinopril 20 mg daily and Lasix 20 mg daily 7. Hyperlipidemia ? Continue atorvastatin 40 mg daily 8. Elevated Alk phos - Patient was noted to have elevation in Alk phos however normal AST, ALT and t- bili - Monitor Healthcare Maintenance: DVT prophylaxis: Bilateral SCDs, no chemical prophylaxis given surgical intervention GI prophylaxis: Protonix 40 mg daily Diet: Diabetic diet Lines: PIV CODE STATUS: Full code Reason for hospitalization: Left fifth toe gangrene status post surgical intervention currently on IV antibiotic therapy and IV pain control Time Spent with Patient Time: Total time spent is greater than 50% in coordination of care (as documented) at patient's floor/unit and/or counseling patient: Time with patient: Greater than 35 minutes Reason for Continued Stay Reason for continued stay: further monitoring and IV antibiotics Quality Measures Quality Measures none Advance care planning discussed with:: patient
[2024-07-28] MEDS: DOXYCYCLINE INJ 100 MG in SODIUM CHLORIDE 0.9% (P) 100 ML IV ×2 (10:48→20:30)
[2024-07-28] MEDS: traMADol HCL 50 MG TABLET PO ×2 (10:51→21:50)
--- NOTE | 2024-07-28 14:45 | PC.SS ---
Rounding: Wound care and IV ABX, poss DC 07/29
[2024-07-28] MEDS: INSULIN GLARGINE (Lantus) 5 UNIT/0.05 ML (PER 5 UNITS) 20 UNIT SC (20:32)
[2024-07-29] VITALS (12 sets, daily range): BP systolic 106–143; BP diastolic 58–81; PULSE 78–106; RESP 12–97; TEMP 36.8–37.2; O2SAT 93–97
--- NOTE | 2024-07-29 | XR_ITS ---
Examination: Ultrasound-guided needle placement right basilic vein. Dual-lumen central line placement (PICC line). Fluoroscopy AP chest, portable, single view Exam date and time:July 29, 2024 1454 hours INDICATIONS: Need for long-term intravenous antibiotic therapy for osteomyelitis A timeout was completed verifying correct patient, procedure, site, positioning Informed consent provided Technique: The patient's site was prepped and draped in sterile fashion. Maximum Sterile Barrier Technique used including cap, mask, sterile gown, sterile gloves, and sterile full body drape. If ultrasound technique used: sterile gel and sterile probe covers. Hand Hygiene performed using proper scrub, soap and water, or alcohol-based hand rub. Site right portable apparatus utilized to confirm patency of the right basilic vein Utilizing ultrasonographic guidance successful 21-gauge needle puncture into the right basilic vein Ultrasound images recorded and stored. 5 cc 1% lidocaine administered for local anesthetic. Successful micropuncture with a 21-gauge needle is performed. 0.18 wire guide is then introduced into the SVC under fluoroscopic guidance. Dual-lumen catheter dilator is then introduced, followed by the catheter in the SVC and proper position under fluoroscopic guidance. Successful aspiration of blood and flushing with heparinized saline is then performed in the 2 venous limbs. The catheter sutured in place. Findings: Under fluoroscopy, the tip of the catheter is in good position in the vena cava. Portable chest x-ray, post line placement is ordered. Estimated blood loss 3 cc The patient tolerated the procedure well and was in stable and satisfactory condition at completion of the procedure Impression: Successful ultrasound-guided needle placement right basilic vein Successful placement of dual lumen central line, percutaneous Fluoroscopy 0.9 minute radiation dose 1.63 milligray 1 spot fluoroscopic chest film. AP chest completion procedure demonstrates satisfactory position central line. May use central line.
[2024-07-29] MEDS: traMADol HCL 50 MG TABLET PO ×4 (03:41→21:52)
[2024-07-29 06:44] LABS: Basophils # (Auto) 0.1 Thou/mm3 (0.0-0.2); Basophils % (Auto) 1 % (0-2.5); Eosinophils # (Auto) 0.6 Thou/mm3 (0.0-0.5); Eosinophils % (Auto) 5 % (0-10); Hematocrit 40.5 % (36.0-46.0); Hemoglobin 13.1 g/dL (12.0-16.0); Immature Granulocytes % (Auto) 0 % (0-0); Immature Granulocytes Auto 0.04 Thou/mm3 (0.00-0.00); Lymphocytes # (Auto) 3.4 Thou/mm3 (1.0-4.8); Lymphocytes % (Auto) 32 % (10-50); Mean Corpuscular HGB Conc 32.3 g/dl (31.0-37.0); Mean Corpuscular Hemoglobin 28.4 pg (25.0-35.0); Mean Corpuscular Volume 88 fL (80-100); Monocytes # (Auto) 1.4 Thou/mm3 (0.0-0.8); Monocytes % (Auto) 13 % (0-12); Neutrophils # (Auto) 5.2 Thou/mm3 (1.8-7.7); Neutrophils % (Auto) 49 % (37-80); Nucleated Red Blood Cell % 0 /100 WBC (0); Platelet Count 319 Thou/mm3 (140-440); RDW Standard Deviation 43.2 fL (36.4-46.3); Red Blood Count 4.62 Miln/mm3 (4.00-5.20); White Blood Count 10.7 Thou/mm3 (3.6-11.0)
[2024-07-29 07:20] LABS: Alanine Aminotransferase 10 U/L (10-49); Albumin, Serum 3.8 gm/dL (3.4-4.8); Albumin/Globulin Ratio 1.4 (1.2-2.2); Alkaline Phosphatase 151 U/L (46-116); Anion Gap 10 (7-16); Aspartate Amino Transferase 15 U/L (0-34); BUN/Creatinine Ratio 13 Ratio (12-20); Bilirubin,Total 0.2 mg/dL (0.3-1.2); Blood Urea Nitrogen 9 mg/dL (9-23); Calcium 9.4 mg/dL (8.3-10.6); Calcium (Corrected) 9.6 mg/dL (8.5-10.1); Carbon Dioxide 24.5 mMol/L (20.0-31.0); Chloride 102 mMol/L (98-107); Creatinine (Component) 0.7 mg/dL (0.6-1.3); Estimated Creatinine Clearance 60.3 mL/min (>60); Globulin 2.7 gm/dL (2.3-3.5); Glucose 183 mg/dL (74-106); Magnesium 1.6 mg/dL (1.6-2.6); Osmolality,Calculated 275 (275-295); Phosphorous 3.4 mg/dL (2.4-5.1); Sodium 136 mMol/L (136-145); Total Protein 6.5 gm/dL (5.7-8.2); eGFR > 60 See Note
[2024-07-29] MEDS: INSULIN LISPRO (AdmeLOG) 1 UNIT/0.01 ML UNIT SC ×3 (07:49→20:37)
[2024-07-29] MEDS: MORPHINE SULF INJ 10 MG/ML VIAL 2 MG IVP ×3 (07:55→17:01)
[2024-07-29] MEDS: cefTRIAXone/D5w 1gm IV premix 50 ML IV (09:42)
[2024-07-29] MEDS: DOXYCYCLINE INJ 100 MG in SODIUM CHLORIDE 0.9% (P) 100 ML IV ×2 (09:42→20:35)
[2024-07-29] MEDS: Lisinopril 20 MG TABLET PO (09:43)
[2024-07-29] MEDS: SENNA TABLET 1 TAB PO (09:43)
[2024-07-29] MEDS: Furosemide 20 MG TABLET PO (09:43)
[2024-07-29] MEDS: ATORVASTATIN CALCIUM 20 MG TABLET 40 MG PO (09:43)
[2024-07-29] MEDS: METHIMAZOLE 5 MG TABLET PO (09:43)
[2024-07-29] MEDS: INSULIN GLARGINE (Lantus) 5 UNIT/0.05 ML (PER 5 UNITS) 20 UNIT SC ×2 (09:45→20:36)
[2024-07-29] MEDS: PANTOPRAZOLE 40 MG TABLET PO (09:57)
--- NOTE | 2024-07-29 11:11 | XR_ITS ---
Examination: Left foot 2 views Technique one AP lateral left foot 2 views Exam date and time: July 29, 2024 1118 hours INDICATIONS: Nonhealing wounds fourth and fifth digits this week FINDINGS: Cortical bone destruction involving the middle phalanx fifth digit and distal aspect proximal phalanx fourth digit No fracture Soft tissue vascular calcification IMPRESSION: Osteomyelitis middle phalanx fifth digit and proximal phalanx fourth digit Consider MRI foot without contrast follow-up
--- NOTE | 2024-07-29 12:40 | PD.RESPRO ---
Documentation for date of: 07/29/24 Senior resident attestation: Patient is a 72--year-old female with a past medical history of diabetes mellitus, hypertension, hyperlipidemia, peripheral artery disease and hypothyroidism, chronic ulcer of left foot, and the toe and heel, admitted for treatment of gangrene secondary to critical limb ischemia. CTA shows 50% stenosis proximal left common iliac artery, 70% stenosis right common iliac artery, multiple areas of critical stenosis right superficial femoral artery, vascular surgeon Dr. Purdy was consulted, pending recommendations. Patient received I&D by general surgeon Dr. Jernigan started on IV antibiotics, imaging showed osteomyelitis, initial plan for discharge on IV antibiotics for 6 weeks, PICC line was placed, plan for IV ceftriaxone and p.o. doxycycline to be continued through September 07, 2024. Following repeat I&D imaging showed persistent osteomyelitis, pending vascular surgery recommendations, amputation may be considered given severe peripheral arterial disease, and less likelihood of long-term wound healing. We updated the patient regarding possible amputation, pending vascular surgery recommendations. Patient evaluated and examined at the bedside, plan of care discussed with rest of the team including my attending physician, except as noted. Quresh PGY2 Subjective Subjective Interval history: Patient seen today at the bedside finally, alert, oriented x 3. No overnight events reported. States no active complaints at this time. Vital signs stable. Labs unremarkable. Insulin regimen adjusted for tighter blood glucose control. Foot x-ray was done and showed Osteomyelitis middle phalanx fifth digit and proximal phalanx fourth digit. Will place PICC line by IR. Physical therapy was also ordered. Exam Vital Signs Temp Pulse Resp BP Pulse Ox O2 Del Method O2 Flow Rate 98.3 F 88 16 109/59 L 95 Room Air 2 07/29/24 12:00 07/29/24 12:00 07/29/24 12:00 07/29/24 12:00 07/29/24 12:07/29/24 12:07/29/24 00:00 Narrative Exam Physical Exam GENERAL: NAD, AAOx3 HEENT: Moist mucosa. Eyes open, symmetrical, & clear CARDIO: Heart RRR, no obvious murmurs PULM: No noted coughing/dyspnea CTA B/L, no R/W/R GI: Abdomen soft, nondistended, no pain on palpation. BSx4 SKIN/MSK/EXT: Left foot covered with dressings, no pain on palpation. Minimal pedal pulses present B/L NEURO: AAOx3, no focal neuro deficits, able to move all 4 extremities Objective Labs 07/30/24 04:57 07/30/24 04:57 Labs: Laboratory Results - last 24 hr 07/29/24 05:48 WBC 10.7 RBC 4.62 Hgb 13.1 Hct 40.5 MCV 88 MCH 28.4 MCHC 32.3 RDW Std Deviation 43.2 Plt Count 319 Neut % (Auto) 49 Lymph % (Auto) 32 Greene % (Auto) 13 H Eos % (Auto) 5 Baso % (Auto) 1 Neut # (Auto) 5.2 Lymph # (Auto) 3.4 Greene # (Auto) 1.4 H Eos # (Auto) 0.6 H Baso # (Auto) 0.1 Immature Gran # (Auto) 0.04 H Absolute Nucleated RBC 0.00 Immature Gran % 0 Nucleated RBC % 0 Sodium 136 Potassium 4.0 Chloride 102 Carbon Dioxide 24.5 Anion Gap 10 BUN 9 Creatinine 0.7 Estim Creat Clear Calc 60.3 L eGFR > 60 BUN/Creatinine Ratio 13 Glucose 183 H Calculated Osmolality 275 Calcium 9.4 Corrected Calcium 9.6 Phosphorus 3.4 Magnesium 1.6 Total Bilirubin 0.2 L AST 15 ALT 10 Alkaline Phosphatase 151 H Total Protein 6.5 Albumin 3.8 Globulin 2.7 Albumin/Globulin Ratio 1.4 Quality Measures Quality Measures none Advance care planning discussed with:: patient Assessment & Plan Assessment Current Active Medications: Generic Name Dose Route Start Last Admin Trade Name Abdiel PRN Reason Stop Dose Admin Acetaminophen 650 mg 07/28/24 10:41 Acetaminophen 325 Mg Tablet PO 08/25/24 22:29 Q6H PRN Fever >100.3 or pain Atorvastatin Calcium 40 mg 07/28/24 09:00 07/29/24 09:43 Atorvastatin Calcium 20 Mg Tablet PO 08/27/24 08:59 40 mg DAILY VENU Administration Dextrose 50 ml 07/26/24 22:36 Dextrose 50%-Water Inj 50 Ml Syringe IV 08/25/24 22:35 Q15MIN PRN BG <50 OR BG <70 & pt unresponsive Furosemide 20 mg 07/28/24 09:00 07/29/24 09:43 Furosemide 20 Mg Tablet PO 08/27/24 08:59 20 mg QAM VENU Administration Glucagon 1 mg 07/26/24 22:36 Glucagon Inj 1 Mg Vial IM Q15MIN PRN BG <70, and no IV access Hydralazine HCl 5 mg 07/26/24 22:43 Hydralazine Inj 20 Mg/Ml Vial IV 08/25/24 22:42 Q6HR PRN SBP > 170 Doxycycline Hyclate 100 mg/ 100 mls @ 100 mls/hr 07/27/24 09:00 07/29/24 09:42 Sodium Chloride IV 08/03/24 08:59 100 mls/hr BID VENU Administration Ceftriaxone Sodium/Dextrose 50 mls @ 100 mls/hr 07/27/24 09:00 07/29/24 09:42 Rocephin/D5w 1gm Iv Premix IV 08/03/24 08:59 100 mls/hr QDAY VENU Administration Insulin Glargine 20 unit 07/29/24 09:00 07/29/24 09:45 Insulin Glargine (Lantus) 5 Unit/0.05 Ml (Per 5 Units) SC 08/28/24 08:59 20 unit BID VENU Administration Insulin Human Lispro 0 unit 07/27/24 21:00 07/29/24 12:09 Insulin Lispro (Admelog) 1 Unit/0.01 Ml Unit SC 08/26/24 20:59 8 unit ACHS VENU Administration Protocol Lisinopril 20 mg 07/27/24 14:30 07/29/24 09:43 Lisinopril 20 Mg Tablet PO 08/26/24 14:29 20 mg QDAY VENU Administration Methimazole 5 mg 07/27/24 09:00 07/29/24 09:43 Methimazole 5 Mg Tablet PO 08/26/24 08:59 5 mg DAILY VENU Administration Morphine Sulfate 2 mg 07/27/24 11:00 07/29/24 12:08 Morphine Sulf Inj 10 Mg/Ml Vial IVP 07/31/24 22:32 2 mg Q4H PRN Administration BREAKTHROUGH PAIN Ondansetron HCl 4 mg 07/26/24 22:30 Ondansetron Inj 2 Mg/Ml Inj 2 Ml IV 08/25/24 22:29 Q6H PRN NAUSEA OR VOMITING Protocol Pantoprazole Sodium 40 mg 07/27/24 09:00 07/29/24 09:57 Pantoprazole 40 Mg Tablet PO 08/26/24 08:59 40 mg QDAY VENU Administration Sennosides 1 tab 07/27/24 09:00 07/29/24 09:43 Senna Tablet PO 08/26/24 08:59 1 tab QDAY VENU Administration Protocol Tramadol HCl 50 mg 07/26/24 22:33 07/29/24 09:42 Tramadol Hcl 50 Mg Tablet PO 07/31/24 22:32 50 mg Q6HR PRN Administration PAIN SCALE 4-10(Mod-Sev Plan 74-year-old female with a past medical history significant for insulin-dependent diabetes mellitus type 2, essential hypertension, hyperlipidemia, peripheral arterial disease and hyperthyroidism presenting today with a chief complaints of toe pain. Patient will be admitted for treatment and management of gangrene secondary to critical limb ischemia. #Gangrene secondary to critical limb ischemia #Left fifth toe osteomyelitis #Peripheral arterial disease Patient presented with a black appearing left fifth digit. Abdomen CTA significant for 70% stenosis proximal 1 right common iliac artery, 50% stenosis proximal left common iliac artery. Multiple critical stenosis right superficial femoral artery. Occlusion proximal right anterior tibial artery and occlusion right main continuous trunk. Occlusion left superficial femoral artery proximally for 20 cm with multiple critical stenoses in mid and distal left superficial femoral artery. Status post fifth toe amputation Foot x-ray was done found with osteomyelitis middle phalanx fifth digit and proximal phalanx fourth digit ? on ceftriaxone 1 g IV daily on [07/27? ? on doxycycline 100 Mg IV twice daily on [07/27? ? Tramadol 50 Mg p.o. every 6 hourly as needed for pain ? Morphine 2 Mg IV every 4 hourly as needed for breakthrough pain ? Wound care ? General Surgery, Dr. Matamoros consulted. Appreciate recommendations #Uncontrolled insulin-dependent diabetes mellitus type 2 #Lactic acidosis-resolved #Pseudo hyponatremia A1c 13.8 Patient states her home medication is insulin glargine 60 units SC daily. On admission glucose 694 and NA 127. Corrected NA 141 Lactic acidosis most likely secondary to uncontrolled blood sugars In the ED patient received 1 L normal saline IV fluid bolus and 10 units insulin HR SC x 1. ? Insulin glargine 20 units SC twice daily ? SSI -Hypoglycemia protocol in place #Chronic kidney disease stage IIIa On admission CR 1.2 which appears to be baseline ? Renally dose medications ? Avoid nephrotoxic drugs #Essential hypertension #Hyperlipidemia On admission BP 114/56. -on lisinopril 20 mg daily as taken at home -on Lasix 20 mg daily -Resumed atorvastatin 40 mg a day #Hyperthyroidism Patient's home medication methimazole 5 Mg p.o. daily and propranolol 10 Mg p.o. twice daily ? Resumed home medication methimazole 5 Mg p.o. daily ? Propranolol not available in hospital Case discussed with my senior Dr. Castro PGY-[address] Zeke Morris MD PGY-1 Disposition: MedSurg Fluids: None Feeding: Carb consistent Thrombo prophylaxis: Not indicated patient with PAD Gastric Ulcer prophylaxis: Pantoprazole CODE STATUS: Full code Attending Provider Attestation/Addendum IYesy, , attest that I was physically present for the garcia portions of the service and evaluated the patient with the resident and I reviewed and discussed the case with the resident and agree with the resident's findings and plans of care as documented above Patient seen and evaluated this AM. She states she is feeling well. Case discussed with wound care nurse and amputation site appears to have worsened with necrosis of surrounding tissue. Foot XR obtained and shows evidence of osteomyelitis. PICC line for IV abx ordered. However, due to CTA findings of severe PAD, will consult vascular surgery whom patient had followed outpatient in the past.
--- NOTE | 2024-07-29 12:52 | PC.SS ---
Follow up note: SS met with pt who states she is followed by [facility] and her request is to continue with them. Transfer nurse, Leonora is aware.
--- NOTE | 2024-07-29 14:45 | PC.DIETICIAN ---
Dietitian recommendation:Add Vitamin C 500mg BID daily, zinc 220mg [id number], Multivitamin-Mineral daily to ensure adequate nutrient intake and promote wound healing. Prostat will be added for additional protein. Thank you
[2024-07-29] MEDS: LIDOCAINE INJ PF 1% 30 ML VIAL INFL (15:22)
[2024-07-29] MEDS: HEPARIN SOD LOCK SYR 100 UNIT/ML 500 UNIT STFIELD (15:23)
[2024-07-29] MEDS: MULTIVITAMINS TABLET 1 TAB PO (16:16)
[2024-07-29] MEDS: ZINC SULFATE 220 MG CAPSULE PO (16:16)
[2024-07-29] MEDS: ASCORBIC ACID 250 MG TABLET 500 MG PO (16:17)
--- NOTE | 2024-07-29 18:07 | PC.NURSE ---
patient back from IR, PICC line on right upper arm, red caps applied.
[2024-07-30] VITALS (7 sets, daily range): BP systolic 99–135; BP diastolic 55–86; PULSE 85–99; RESP 16–20; TEMP 36.6–36.8; O2SAT 93–97
[2024-07-30] MEDS: traMADol HCL 50 MG TABLET PO ×3 (05:15→20:50)
[2024-07-30 06:38] LABS: Basophils # (Auto) 0.1 Thou/mm3 (0.0-0.2); Basophils % (Auto) 1 % (0-2.5); Eosinophils # (Auto) 0.6 Thou/mm3 (0.0-0.5); Eosinophils % (Auto) 6 % (0-10); Hematocrit 37.6 % (36.0-46.0); Hemoglobin 12.6 g/dL (12.0-16.0); Immature Granulocytes % (Auto) 0 % (0-0); Immature Granulocytes Auto 0.03 Thou/mm3 (0.00-0.00); Lymphocytes # (Auto) 2.4 Thou/mm3 (1.0-4.8); Lymphocytes % (Auto) 27 % (10-50); Mean Corpuscular HGB Conc 33.5 g/dl (31.0-37.0); Mean Corpuscular Hemoglobin 28.9 pg (25.0-35.0); Mean Corpuscular Volume 86 fL (80-100); Monocytes # (Auto) 1.1 Thou/mm3 (0.0-0.8); Monocytes % (Auto) 12 % (0-12); Neutrophils # (Auto) 4.9 Thou/mm3 (1.8-7.7); Neutrophils % (Auto) 54 % (37-80); Nucleated Red Blood Cell % 0 /100 WBC (0); Platelet Count 305 Thou/mm3 (140-440); RDW Standard Deviation 42.4 fL (36.4-46.3); Red Blood Count 4.36 Miln/mm3 (4.00-5.20)
[2024-07-30] MEDS: MORPHINE SULF INJ 10 MG/ML VIAL 2 MG IVP ×3 (06:42→22:00)
[2024-07-30 07:43] LABS: Alanine Aminotransferase 9 U/L (10-49); Albumin/Globulin Ratio 1.7 (1.2-2.2); Alkaline Phosphatase 156 U/L (46-116); Anion Gap 8 (7-16); Aspartate Amino Transferase 14 U/L (0-34); BUN/Creatinine Ratio 20 Ratio (12-20); Bilirubin,Total 0.2 mg/dL (0.3-1.2); Blood Urea Nitrogen 12 mg/dL (9-23); Calcium 9.6 mg/dL (8.3-10.6); Calcium (Corrected) 9.6 mg/dL (8.5-10.1); Carbon Dioxide 27.7 mMol/L (20.0-31.0); Chloride 100 mMol/L (98-107); Creatinine (Component) 0.6 mg/dL (0.6-1.3); Estimated Creatinine Clearance 70.4 mL/min (>60); Globulin 2.4 gm/dL (2.3-3.5); Glucose 134 mg/dL (74-106); Magnesium 1.6 mg/dL (1.6-2.6); Osmolality,Calculated 273 (275-295); Potassium 3.2 mMol/L (3.4-5.1); Sodium 136 mMol/L (136-145); Total Protein 6.4 gm/dL (5.7-8.2); eGFR > 60 See Note
--- NOTE | 2024-07-30 08:59 | PC.NURSE ---
[facility] downtime occurred on 07/30/24 from 0100 to 0700.
[2024-07-30] MEDS: DOXYCYCLINE INJ 100 MG in SODIUM CHLORIDE 0.9% (P) 100 ML IV ×2 (09:10→20:45)
[2024-07-30] MEDS: Lisinopril 20 MG TABLET PO (09:23)
[2024-07-30] MEDS: METHIMAZOLE 5 MG TABLET PO (09:24)
[2024-07-30] MEDS: SENNA TABLET 1 TAB PO (09:24)
[2024-07-30] MEDS: ATORVASTATIN CALCIUM 20 MG TABLET 40 MG PO (09:24)
[2024-07-30] MEDS: POTASSIUM CHLORIDE 20 mEq TABCR 40 MEQ PO (09:24)
[2024-07-30] MEDS: Furosemide 20 MG TABLET PO (09:24)
[2024-07-30] MEDS: cefTRIAXone/D5w 1gm IV premix 50 ML IV (09:25)
[2024-07-30] MEDS: ASCORBIC ACID 250 MG TABLET 500 MG PO ×2 (09:25→20:49)
[2024-07-30] MEDS: PANTOPRAZOLE 40 MG TABLET PO (09:25)
[2024-07-30] MEDS: ZINC SULFATE 220 MG CAPSULE PO (09:25)
[2024-07-30] MEDS: MULTIVITAMINS TABLET 1 TAB PO (09:25)
[2024-07-30] MEDS: INSULIN GLARGINE (Lantus) 5 UNIT/0.05 ML (PER 5 UNITS) 20 UNIT SC ×2 (09:26→20:50)
[2024-07-30] MEDS: MORPHINE SULF INJ 10 MG/ML VIAL IVP (10:46)
[2024-07-30] MEDS: INSULIN LISPRO (AdmeLOG) 1 UNIT/0.01 ML UNIT SC ×3 (11:05→20:50)
--- NOTE | 2024-07-30 14:21 | PC.NURSE ---
Spoke with vascular Surgeon about the Pt. consultation. Per Surgeon he will come see the pt. today after 4
--- NOTE | 2024-07-30 15:19 | PC.CC ---
Confirmed with Dr. Bee that surgery recs are pending. If surgery proceeds with amputation and source control is achieved, HH IV Abx will not be required. Prepared draft patient packet missing IV Abx order and discharge summary and saved to [facility] drive. Did not open patient on [facility]. Dr. Bee will update, likely tomorrow, on need for IV Abx.
--- NOTE | 2024-07-30 15:38 | ESPR_ITS ---
Documentation for date of: 07/30/24 Senior resident attestation: Patient is a 72--year-old female with a past medical history of diabetes mellitus, hypertension, hyperlipidemia, peripheral artery disease and hypothyroidism, chronic ulcer of left foot, and the toe and heel, admitted for treatment of gangrene secondary to critical limb ischemia. CTA shows 50% stenosis proximal left common iliac artery, 70% stenosis right common iliac artery, multiple areas of critical stenosis right superficial femoral artery, vascular surgeon Dr. Purdy was consulted, pending recommendations. Patient received I&D by general surgeon Dr. Jernigan started on IV antibiotics, imaging showed osteomyelitis, initial plan for discharge on IV antibiotics for 6 weeks, PICC line was placed, plan for IV ceftriaxone and p.o. doxycycline to be continued through September 07, 2024. Following repeat I&D imaging showed persistent osteomyelitis, pending vascular surgery recommendations, amputation may be considered given severe peripheral arterial disease, and less likelihood of long-term wound healing. We updated the patient regarding possible amputation, pending vascular surgery recommendations. Surgery recommended transferring the patient for angiogram, transfer orders placed. Patient evaluated and examined at the bedside, plan of care discussed with rest of the team including my attending physician, except as noted. Quresh PGY2 Subjective Subjective Interval history: Patient seen today at the bedside found awake, alert, oriented x 3. No overnight events reported. States no active complaints at this time. Vital signs stable at this time. Labs at this time nonsignificant. Vascular surgery consulted stated he will evaluate the patient in the afternoon. Patient has very severe peripheral artery disease will likely need amputation at some point in time. Spoke to the patient showed understanding will wait for vascular surgeon evaluation. Exam Vital Signs Temp Pulse Resp BP Pulse Ox O2 Del Method O2 Flow Rate 98 F 98 16 101/63 97 Room Air 2 07/30/24 12:00 07/30/24 12:07/30/24 12:07/30/24 12:07/30/24 12:07/30/24 12:07/29/24 15:25 Narrative Exam Physical Exam GENERAL: NAD, AAOx3 HEENT: Moist mucosa. Eyes open, symmetrical, & clear CARDIO: Heart RRR, no obvious murmurs PULM: No noted coughing/dyspnea CTA B/L, no R/W/R GI: Abdomen soft, nondistended, no pain on palpation. BSx4 SKIN/MSK/EXT: Left foot covered with dressings, no pain on palpation. Minimal pedal pulses present B/L NEURO: AAOx3, no focal neuro deficits, able to move all 4 extremities Objective Labs 07/31/24 05:42 07/31/24 05:42 Labs: Laboratory Results - last 24 hr 07/30/24 04:57 WBC 9.0 RBC 4.36 Hgb 12.6 Hct 37.6 MCV 86 MCH 28.9 MCHC 33.5 RDW Std Deviation 42.4 Plt Count 305 Neut % (Auto) 54 Lymph % (Auto) 27 Ballard % (Auto) 12 Eos % (Auto) 6 Baso % (Auto) 1 Neut # (Auto) 4.9 Lymph # (Auto) 2.4 Ballard # (Auto) 1.1 H Eos # (Auto) 0.6 H Baso # (Auto) 0.1 Immature Gran # (Auto) 0.03 H Absolute Nucleated RBC 0.00 Immature Gran % 0 Nucleated RBC % 0 Sodium 136 Potassium 3.2 L D Chloride 100 Carbon Dioxide 27.7 Anion Gap 8 BUN 12 Creatinine 0.6 Estim Creat Clear Calc 70.4 eGFR > 60 BUN/Creatinine Ratio 20 Glucose 134 H Calculated Osmolality 273 L Calcium 9.6 Corrected Calcium 9.6 Phosphorus 4.0 Magnesium 1.6 Total Bilirubin 0.2 L AST 14 ALT 9 L Alkaline Phosphatase 156 H Total Protein 6.4 Albumin 4.0 Globulin 2.4 Albumin/Globulin Ratio 1.7 Quality Measures Quality Measures none Advance care planning discussed with:: patient Assessment & Plan Assessment Current Active Medications: Generic Name Dose Route Start Last Admin Trade Name Freq PRN Reason Stop Dose Admin Acetaminophen 650 mg 07/28/24 10:41 Acetaminophen 325 Mg Tablet PO 08/25/24 22:29 Q6H PRN Fever >100.3 or pain Ascorbic Acid 500 mg 07/29/24 15:00 07/30/24 09:25 Ascorbic Acid 250 Mg Tablet PO 08/28/24 14:59 500 mg BID VENU Administration Atorvastatin Calcium 40 mg 07/28/24 09:00 07/30/24 09:24 Atorvastatin Calcium 20 Mg Tablet PO 08/27/24 08:59 40 mg DAILY VENU Administration Dextrose 50 ml 07/26/24 22:36 Dextrose 50%-Water Inj 50 Ml Syringe IV 08/25/24 22:35 Q15MIN PRN BG <50 OR BG <70 & pt unresponsive Furosemide 20 mg 07/28/24 09:00 07/30/24 09:24 Furosemide 20 Mg Tablet PO 08/27/24 08:59 20 mg QAM VENU Administration Glucagon 1 mg 07/26/24 22:36 Glucagon Inj 1 Mg Vial IM Q15MIN PRN BG <70, and no IV access Hydralazine HCl 5 mg 07/26/24 22:43 Hydralazine Inj 20 Mg/Ml Vial IV 08/25/24 22:42 Q6HR PRN SBP > 170 Doxycycline Hyclate 100 mg/ 100 mls @ 100 mls/hr 07/27/24 09:00 07/30/24 10:10 Sodium Chloride IV 08/03/24 08:59 Infused BID VENU Infusion Ceftriaxone Sodium/Dextrose 50 mls @ 100 mls/hr 07/27/24 09:00 07/30/24 09:25 Rocephin/D5w 1gm Iv Premix IV 08/03/24 08:59 100 mls/hr QDAY VENU Administration Insulin Glargine 20 unit 07/29/24 09:00 07/30/24 09:26 Insulin Glargine (Lantus) 5 Unit/0.05 Ml (Per 5 Units) SC 08/28/24 08:59 20 unit BID VENU Administration Insulin Human Lispro 0 unit 07/27/24 21:00 07/30/24 11:05 Insulin Lispro (Admelog) 1 Unit/0.01 Ml Unit SC 08/26/24 20:59 8 unit ACHS VENU Administration Protocol Lisinopril 20 mg 07/27/24 14:30 07/30/24 09:23 Lisinopril 20 Mg Tablet PO 08/26/24 14:29 20 mg QDAY VENU Administration Methimazole 5 mg 07/27/24 09:00 07/30/24 09:24 Methimazole 5 Mg Tablet PO 08/26/24 08:59 5 mg DAILY VENU Administration Morphine Sulfate 2 mg 07/27/24 11:00 07/30/24 06:42 Morphine Sulf Inj 10 Mg/Ml Vial IVP 07/31/24 22:32 2 mg Q4H PRN Administration BREAKTHROUGH PAIN Multivitamins 1 tab 07/29/24 15:00 07/30/24 09:25 Multivitamins Tablet PO 08/28/24 14:59 1 tab QDAY VENU Administration Ondansetron HCl 4 mg 07/26/24 22:30 Ondansetron Inj 2 Mg/Ml Inj 2 Ml IV 08/25/24 22:29 Q6H PRN NAUSEA OR VOMITING Protocol Pantoprazole Sodium 40 mg 07/27/24 09:00 07/30/24 09:25 Pantoprazole 40 Mg Tablet PO 08/26/24 08:59 40 mg QDAY VENU Administration Sennosides 1 tab 07/27/24 09:00 07/30/24 09:24 Senna Tablet PO 08/26/24 08:59 1 tab QDAY VENU Administration Protocol Tramadol HCl 50 mg 07/26/24 22:33 07/30/24 14:28 Tramadol Hcl 50 Mg Tablet PO 07/31/24 22:32 50 mg Q6HR PRN Administration PAIN SCALE 4-10(Mod-Sev Zinc Sulfate 220 mg 07/29/24 15:00 07/30/24 09:25 Zinc Sulfate 220 Mg Capsule PO 08/28/24 14:59 220 mg QDAY VENU Administration Plan 74-year-old female with a past medical history significant for insulin-dependent diabetes mellitus type 2, essential hypertension, hyperlipidemia, peripheral arterial disease and hyperthyroidism presenting today with a chief complaints of toe pain. Patient will be admitted for treatment and management of gangrene secondary to critical limb ischemia. #Gangrene secondary to critical limb ischemia #Left fifth toe osteomyelitis #Peripheral arterial disease Patient presented with a black appearing left fifth digit. Abdomen CTA significant for 70% stenosis proximal 1 right common iliac artery, 50% stenosis proximal left common iliac artery. Multiple critical stenosis right superficial femoral artery. Occlusion proximal right anterior tibial artery and occlusion right main continuous trunk. Occlusion left superficial femoral artery proximally for 20 cm with multiple critical stenoses in mid and distal left superficial femoral artery. Status post fifth toe amputation Foot x-ray was done found with osteomyelitis middle phalanx fifth digit and proximal phalanx fourth digit ? on ceftriaxone 1 g IV daily on [07/27? ? on doxycycline 100 Mg IV twice daily on [07/27? ? Tramadol 50 Mg p.o. every 6 hourly as needed for pain ? Morphine 2 Mg IV every 4 hourly as needed for breakthrough pain ? Wound care ? General Surgery, Dr. Matamoros consulted. Appreciate recommendations ? Vascular surgery, Dr. Purdy consulted, appreciate recommendations #Uncontrolled insulin-dependent diabetes mellitus type 2 #Lactic acidosis-resolved #Pseudo hyponatremia A1c 13.8 Patient states her home medication is insulin glargine 60 units SC daily. On admission glucose 694 and NA 127. Corrected NA 141 Lactic acidosis most likely secondary to uncontrolled blood sugars In the ED patient received 1 L normal saline IV fluid bolus and 10 units insulin HR SC x 1. ? Insulin glargine 20 units SC twice daily ? SSI -Hypoglycemia protocol in place #Chronic kidney disease stage IIIa On admission CR 1.2 which appears to be baseline ? Renally dose medications ? Avoid nephrotoxic drugs #Essential hypertension #Hyperlipidemia On admission BP 114/56. -on lisinopril 20 mg daily as taken at home -on Lasix 20 mg daily -Resumed atorvastatin 40 mg a day #Hyperthyroidism Patient's home medication methimazole 5 Mg p.o. daily and propranolol 10 Mg p.o. twice daily ? Resumed home medication methimazole 5 Mg p.o. daily ? Propranolol not available in hospital Case discussed with my senior Dr. Castro PGY-[address] Zeke Morris MD PGY-1 Disposition: MedSurg Fluids: None Feeding: Carb consistent Thrombo prophylaxis: Not indicated patient with PAD Gastric Ulcer prophylaxis: Pantoprazole CODE STATUS: Full code Attending Provider Attestation/Addendum Yesy Gaona, , attest that I was physically present for the garcia portions of the service and evaluated the patient with the resident and I reviewed and discussed the case with the resident and agree with the resident's findings and plans of care as documented above Patient seen and eval this a.m. Patient is tearful due to the news that she may need an amputation due to her severe peripheral vascular disease. Case was discussed with vascular surgeon who will look into previous records regarding her previous peripheral angiogram done outpatient. Patient states that the procedure was stopped midway due to complications/difficulty navigating her vasculature. Vascular surgery recommends starting transfer to [facility] for possible peripheral angiogram. Agrees with plan regarding PICC line placement and IV antibiotics for 6 weeks. Will follow-up with vascular's recommendations once her previous records are reviewed.
--- NOTE | 2024-07-30 21:23 | PD.SURCONS ---
HPI Consult details Consult date: 07/30/24 Reason for consultation narrative: Gangrene left foot with severe peripheral vascular disease History of present illness: 74 y/o woman seen by me in the past for severe PVD. She underwent a left leg angiogram that showed left SFA occlusion with below knee reconstitution of a small diseased popliteal artery and 2 vessel runoff. She had a CTA on this hospitalization that showed a similar picture but the runoff vessels have deteriorated now with no tibial artery continuiously patent to the foot. She just underwent a left foot 5th toe amputation and heel debridement. Meds Home Medications and Allergies Home Medications ?Medication ?Instructions ?Recorded ?Confirmed ?Type lisinopril 20 mg tablet 20 mg PO QDAY 06/10/19 07/27/24 History furosemide 20 mg tablet 20 mg PO QAM 09/09/20 07/27/24 History insulin detemir U-100 100 unit/mL 60 unit subcut QDAY 09/09/20 07/27/24 History (3 mL) subcutaneous pen (Levemir FlexTouch U-100 Insulin) atorvastatin 40 mg tablet 40 mg PO DAILY 02/14/24 07/27/24 History famotidine 40 mg tablet 40 mg PO HS 02/14/24 07/27/24 History methimazole 5 mg tablet 5 mg PO DAILY 02/14/24 07/27/24 History pantoprazole 40 mg tablet,delayed 40 mg PO DAILY 02/14/24 07/27/24 History release methocarbamol 750 mg tablet 750 mg PO 4XD 02/15/24 07/27/24 History Allergies Allergy/AdvReac Type Severity Reaction Status Date / Time No Known Allergies Allergy Verified 07/27/24 12:41 Exam Vital Signs Temp Pulse Resp BP Pulse Ox O2 Del Method O2 Flow Rate 98.3 F 96 18 113/63 95 Room Air 2 07/30/24 20:07/30/24 20:07/30/24 20:07/30/24 20:07/30/24 20:07/30/24 20:00 07/29/24 15:25 Routine Extremities Exam Comments: The left leg is warm with normal appearing skin to the ankle. The foot had just been dressed Assessment & Plan Plan After reviewing the images from the angiogram i did in 2022 and the present CTA, percutaneous intervention cannot be performed due to the extent of the SFA occlusion and a bypass to the popliteal artery is unlikely to adequately reperfuse the foot due to the subsequent severe tibial artery disease. I will check the status of the foot tomorrow before making final recommendations
[2024-07-31] VITALS (8 sets, daily range): BP systolic 103–153; BP diastolic 55–86; PULSE 99–111; RESP 17–19; TEMP 36.1–36.7; O2SAT 92–99
[2024-07-31] MEDS: traMADol HCL 50 MG TABLET PO ×2 (05:46→16:00)
[2024-07-31 06:17] LABS: Basophils # (Auto) 0.1 Thou/mm3 (0.0-0.2); Basophils % (Auto) 1 % (0-2.5); Eosinophils # (Auto) 0.5 Thou/mm3 (0.0-0.5); Eosinophils % (Auto) 6 % (0-10); Hematocrit 35.4 % (36.0-46.0); Hemoglobin 11.9 g/dL (12.0-16.0); Immature Granulocytes % (Auto) 0 % (0-0); Immature Granulocytes Auto 0.04 Thou/mm3 (0.00-0.00); Lymphocytes # (Auto) 3.1 Thou/mm3 (1.0-4.8); Lymphocytes % (Auto) 33 % (10-50); Mean Corpuscular HGB Conc 33.6 g/dl (31.0-37.0); Mean Corpuscular Volume 86 fL (80-100); Monocytes # (Auto) 0.9 Thou/mm3 (0.0-0.8); Monocytes % (Auto) 10 % (0-12); Neutrophils # (Auto) 4.7 Thou/mm3 (1.8-7.7); Neutrophils % (Auto) 50 % (37-80); Nucleated Red Blood Cell % 0 /100 WBC (0); Platelet Count 315 Thou/mm3 (140-440); RDW Standard Deviation 42.1 fL (36.4-46.3); White Blood Count 9.3 Thou/mm3 (3.6-11.0)
[2024-07-31 06:52] LABS: Alanine Aminotransferase 9 U/L (10-49); Albumin, Serum 3.6 gm/dL (3.4-4.8); Albumin/Globulin Ratio 1.5 (1.2-2.2); Alkaline Phosphatase 159 U/L (46-116); Anion Gap 8 (7-16); Aspartate Amino Transferase 18 U/L (0-34); BUN/Creatinine Ratio 18 Ratio (12-20); Bilirubin,Total 0.3 mg/dL (0.3-1.2); Blood Urea Nitrogen 11 mg/dL (9-23); Calcium 9.7 mg/dL (8.3-10.6); Carbon Dioxide 27.6 mMol/L (20.0-31.0); Chloride 104 mMol/L (98-107); Creatinine (Component) 0.6 mg/dL (0.6-1.3); Estimated Creatinine Clearance 70.4 mL/min (>60); Globulin 2.4 gm/dL (2.3-3.5); Glucose 70 mg/dL (74-106); Magnesium 1.6 mg/dL (1.6-2.6); Osmolality,Calculated 276 (275-295); Phosphorous 3.5 mg/dL (2.4-5.1); Potassium 3.6 mMol/L (3.4-5.1); Sodium 140 mMol/L (136-145); eGFR > 60 See Note
[2024-07-31] MEDS: MORPHINE SULF INJ 10 MG/ML VIAL 2 MG IVP ×3 (07:41→22:36)
--- NOTE | 2024-07-31 08:44 | PC.SS ---
SS follow up note; SS sent Clinicals to [facility] and provided Transfer nurses, Arnold Contact number.
[2024-07-31] MEDS: PANTOPRAZOLE 40 MG TABLET PO (09:32)
[2024-07-31] MEDS: SENNA TABLET 1 TAB PO (09:33)
[2024-07-31] MEDS: ATORVASTATIN CALCIUM 20 MG TABLET 40 MG PO (09:33)
[2024-07-31] MEDS: Furosemide 20 MG TABLET PO (09:33)
[2024-07-31] MEDS: METHIMAZOLE 5 MG TABLET PO (09:33)
[2024-07-31] MEDS: Lisinopril 20 MG TABLET PO (09:34)
[2024-07-31] MEDS: ASCORBIC ACID 250 MG TABLET 500 MG PO ×2 (09:34→20:57)
[2024-07-31] MEDS: INSULIN GLARGINE (Lantus) 5 UNIT/0.05 ML (PER 5 UNITS) 20 UNIT SC (09:34)
[2024-07-31] MEDS: MULTIVITAMINS TABLET 1 TAB PO (09:34)
[2024-07-31] MEDS: ZINC SULFATE 220 MG CAPSULE PO (09:34)
[2024-07-31] MEDS: DOXYCYCLINE INJ 100 MG in SODIUM CHLORIDE 0.9% (P) 100 ML IV ×2 (09:37→20:57)
[2024-07-31] MEDS: cefTRIAXone/D5w 1gm IV premix 50 ML IV (09:37)
[2024-07-31] MEDS: INSULIN LISPRO (AdmeLOG) 1 UNIT/0.01 ML UNIT SC ×2 (11:08→17:02)
--- NOTE | 2024-07-31 12:00 | PC.SS ---
Follow up note: Pending vascular surgery recommendations. Possible amputation by Dr. Matamoros
--- NOTE | 2024-07-31 12:23 | PC.CC ---
Addendum entered by Francesco Mckay RN 07/31/24 12:29: 1228- Received call from Dr. Alanis, patient was reviewed with Dr. Purdy and the transfer request has been cancelled at this time. TON Allison at [facility] was informed of cancellation. Original Note: 1220- Phone call to [facility], spoke with TON Allison regarding transfer request for vascular surgery, she will present case but does not believe they will be able to accept this patient today due to high patient volumes at their hospital. Dr. Bee was notified of this information and he will update Dr. Alanis and Dr. Purdy. Possible amputation by Dr. Matamoros today, so it is possible transfer may be cancelled. Dr. Bee will notify [facility] if they decide to cancel transfer.
--- NOTE | 2024-07-31 15:40 | PC.CC ---
Addendum entered and electronically signed by Laura Brown robson 07/31/24 16:00: PASSR Level 1 complete and downloaded; Level 2 not required. Original Note: Sent referrals via [employer] to [facility] and [facility] for HH and IV Abx. Both accepted, however [facility] does not have an SOC until 08/05 and [facility] reports a co-pay of $370.16 for 9 days of antibiotics. Per [facility], they discussed with patient and she cannot afford co-pay. Discussed w/ Ami, GIOVANNI, who will s/w patient about SNF options. Updated MD. Should patient wish to continue with HH IV Abx, her teachable caregiver is , Melvin, who has confirmed with PharmD. Patient is agreeable to other HH agencies with no preference if a sooner SOC is needed. [facility] is checking with clinical team for any sooner SOC.
--- NOTE | 2024-07-31 16:49 | PC.NURSE ---
assumed care of patient
--- NOTE | 2024-07-31 17:53 | ESPR_ITS ---
Documentation for date of: 07/31/24 Subjective Subjective Interval history: Patient seen at bedside today. Still having continued complaint of pain. Will add gabapentin to her pain regimen and inform her that she does have morphine as a as needed order. Dr. Purdy had suggested a lower extremity venous study to assess for saphenous mapping but we were informed that the hospital does not have the diagnostic tools required for this study. So plan was to discharge the patient home with home health services but later she decided that she would rather prefer to go to a group home facility to undergo rehabilitation potential. Case management was made aware and is working on placing the patient in a group home facility. Patient will undergo the venous study at [facility] on Monday. And follow-up with Dr. Purdy on Monday Exam Vital Signs Temp Pulse Resp BP Pulse Ox O2 Del Method O2 Flow Rate 97.4 F 107 H 19 124/71 97 Room Air 2 07/31/24 16:00 07/31/24 16:00 07/31/24 16:07/31/24 16:07/31/24 16:07/31/24 16:00 07/29/24 15:25 Narrative Exam Physical Exam GENERAL: NAD, AAOx3 HEENT: Moist mucosa. Eyes open, symmetrical, & clear CARDIO: Heart RRR, no obvious murmurs PULM: No noted coughing/dyspnea CTA B/L, no R/W/R GI: Abdomen soft, nondistended, no pain on palpation. BSx4 SKIN/MSK/EXT: Left foot covered with dressings, no pain on palpation. Minimal pedal pulses present B/L NEURO: AAOx3, no focal neuro deficits, able to move all 4 extremities Objective Labs 08/01/24 11:10 08/01/24 07:40 Labs: Laboratory Results - last 24 hr 07/31/24 05:42 WBC 9.3 RBC 4.10 Hgb 11.9 L Hct 35.4 L MCV 86 MCH 29.0 MCHC 33.6 RDW Std Deviation 42.1 Plt Count 315 Neut % (Auto) 50 Lymph % (Auto) 33 [place] % (Auto) 10 Eos % (Auto) 6 Baso % (Auto) 1 Neut # (Auto) 4.7 Lymph # (Auto) 3.1 [place] # (Auto) 0.9 H Eos # (Auto) 0.5 Baso # (Auto) 0.1 Immature Gran # (Auto) 0.04 H Absolute Nucleated RBC 0.00 Immature Gran % 0 Nucleated RBC % 0 Sodium 140 Potassium 3.6 Chloride 104 Carbon Dioxide 27.6 Anion Gap 8 BUN 11 Creatinine 0.6 Estim Creat Clear Calc 70.4 eGFR > 60 BUN/Creatinine Ratio 18 Glucose 70 L D Calculated Osmolality 276 Calcium 9.7 Corrected Calcium 10.0 Phosphorus 3.5 Magnesium 1.6 Total Bilirubin 0.3 AST 18 ALT 9 L Alkaline Phosphatase 159 H Total Protein 6.0 Albumin 3.6 Globulin 2.4 Albumin/Globulin Ratio 1.5 Quality Measures Quality Measures none Advance care planning discussed with:: patient Assessment & Plan Assessment Current Active Medications: Generic Name Dose Route Start Last Admin Trade Name Freq PRN Reason Stop Dose Admin Acetaminophen 650 mg 07/28/24 10:41 Acetaminophen 325 Mg Tablet PO 08/25/24 22:29 Q6H PRN Fever >100.3 or pain Ascorbic Acid 500 mg 07/29/24 15:00 07/31/24 09:34 Ascorbic Acid 250 Mg Tablet PO 08/28/24 14:59 500 mg BID VENU Administration Atorvastatin Calcium 40 mg 07/28/24 09:00 07/31/24 09:33 Atorvastatin Calcium 20 Mg Tablet PO 08/27/24 08:59 40 mg DAILY VENU Administration Dextrose 50 ml 07/26/24 22:36 Dextrose 50%-Water Inj 50 Ml Syringe IV 08/25/24 22:35 Q15MIN PRN BG <50 OR BG <70 & pt unresponsive Furosemide 20 mg 07/28/24 09:00 07/31/24 09:33 Furosemide 20 Mg Tablet PO 08/27/24 08:59 20 mg QAM VENU Administration Gabapentin 100 mg 07/31/24 21:00 Gabapentin 100 Mg Capsule PO 08/30/24 20:59 BID VENU Glucagon 1 mg 07/26/24 22:36 Glucagon Inj 1 Mg Vial IM Q15MIN PRN BG <70, and no IV access Hydralazine HCl 5 mg 07/26/24 22:43 Hydralazine Inj 20 Mg/Ml Vial IV 08/25/24 22:42 Q6HR PRN SBP > 170 Doxycycline Hyclate 100 mg/ 100 mls @ 100 mls/hr 07/27/24 09:00 07/31/24 09:37 Sodium Chloride IV 08/03/24 08:59 100 mls/hr BID VENU Administration Ceftriaxone Sodium/Dextrose 50 mls @ 100 mls/hr 07/27/24 09:00 07/31/24 09:37 Rocephin/D5w 1gm Iv Premix IV 08/03/24 08:59 100 mls/hr QDAY VENU Administration Insulin Glargine 20 unit 07/29/24 09:00 07/31/24 09:34 Insulin Glargine (Lantus) 5 Unit/0.05 Ml (Per 5 Units) SC 08/28/24 08:59 20 unit BID VENU Administration Insulin Human Lispro 0 unit 07/27/24 21:00 07/31/24 17:02 Insulin Lispro (Admelog) 1 Unit/0.01 Ml Unit SC 08/26/24 20:59 8 unit ACHS VENU Administration Protocol Lisinopril 20 mg 07/27/24 14:30 07/31/24 09:34 Lisinopril 20 Mg Tablet PO 08/26/24 14:29 20 mg QDAY VENU Administration Methimazole 5 mg 07/27/24 09:00 07/31/24 09:33 Methimazole 5 Mg Tablet PO 08/26/24 08:59 5 mg DAILY VENU Administration Morphine Sulfate 2 mg 07/27/24 11:00 07/31/24 16:58 Morphine Sulf Inj 10 Mg/Ml Vial IVP 07/31/24 22:32 2 mg Q4H PRN Administration BREAKTHROUGH PAIN Multivitamins 1 tab 07/29/24 15:00 07/31/24 09:34 Multivitamins Tablet PO 08/28/24 14:59 1 tab QDAY VENU Administration Ondansetron HCl 4 mg 07/26/24 22:30 Ondansetron Inj 2 Mg/Ml Inj 2 Ml IV 08/25/24 22:29 Q6H PRN NAUSEA OR VOMITING Protocol Pantoprazole Sodium 40 mg 07/27/24 09:00 07/31/24 09:32 Pantoprazole 40 Mg Tablet PO 08/26/24 08:59 40 mg QDAY VENU Administration Sennosides 1 tab 07/27/24 09:00 07/31/24 09:33 Senna Tablet PO 08/26/24 08:59 1 tab QDAY VENU Administration Protocol Tramadol HCl 50 mg 07/26/24 22:33 07/31/24 16:00 Tramadol Hcl 50 Mg Tablet PO 07/31/24 22:32 50 mg Q6HR PRN Administration PAIN SCALE 4-10(Mod-Sev Zinc Sulfate 220 mg 07/29/24 15:00 07/31/24 09:34 Zinc Sulfate 220 Mg Capsule PO 08/28/24 14:59 220 mg QDAY VENU Administration Plan 74-year-old female with a past medical history significant for insulin-dependent diabetes mellitus type 2, essential hypertension, hyperlipidemia, peripheral arterial disease and hyperthyroidism presenting today with a chief complaints of toe pain. Patient will be admitted for treatment and management of gangrene secondary to critical limb ischemia. #Gangrene secondary to critical limb ischemia #Left fifth toe osteomyelitis #Peripheral arterial disease Patient presented with a black appearing left fifth digit. Abdomen CTA significant for 70% stenosis proximal 1 right common iliac artery, 50% stenosis proximal left common iliac artery. Multiple critical stenosis right superficial femoral artery. Occlusion proximal right anterior tibial artery and occlusion right main continuous trunk. Occlusion left superficial femoral artery proximally for 20 cm with multiple critical stenoses in mid and distal left superficial femoral artery. Status post fifth toe amputation Foot x-ray was done found with osteomyelitis middle phalanx fifth digit and proximal phalanx fourth digit ? on ceftriaxone 1 g IV daily on [07/27? ? on doxycycline 100 Mg IV twice daily on [07/27? ? Tramadol 50 Mg p.o. every 6 hourly as needed for pain ? Morphine 2 Mg IV every 4 hourly as needed for breakthrough pain ? Wound care ? General Surgery, Dr. Matamoros consulted. Appreciate recommendations ? Vascular surgery, Dr. Purdy consulted, appreciate recommendations #Uncontrolled insulin-dependent diabetes mellitus type 2 #Lactic acidosis-resolved #Pseudo hyponatremia A1c 13.8 Patient states her home medication is insulin glargine 60 units SC daily. On admission glucose 694 and NA 127. Corrected NA 141 Lactic acidosis most likely secondary to uncontrolled blood sugars In the ED patient received 1 L normal saline IV fluid bolus and 10 units insulin HR SC x 1. ? Insulin glargine 20 units SC twice daily ? SSI -Hypoglycemia protocol in place #Chronic kidney disease stage IIIa On admission CR 1.2 which appears to be baseline ? Renally dose medications ? Avoid nephrotoxic drugs #Essential hypertension #Hyperlipidemia On admission BP 114/56. -on lisinopril 20 mg daily as taken at home -on Lasix 20 mg daily -Resumed atorvastatin 40 mg a day #Hyperthyroidism Patient's home medication methimazole 5 Mg p.o. daily and propranolol 10 Mg p.o. twice daily ? Resumed home medication methimazole 5 Mg p.o. daily ? Propranolol not available in hospital Plan of care discussed with supervising attending Dr. Zeke Bee M.D. PGY-3 Disposition: MedSurg Fluids: None Feeding: Carb consistent Thrombo prophylaxis: Not indicated patient with PAD Gastric Ulcer prophylaxis: Pantoprazole CODE STATUS: Full code Attending Provider Attestation/Addendum Yesy Gaona, , attest that I was physically present for the garcia portions of the service and evaluated the patient with the resident and I reviewed and discussed the case with the resident and agree with the resident's findings and plans of care as documented above Patient seen and evaluated this a.m. She states that she is doing well. No acute complaints at this time. Patient is tearful and she is aware that she may need amputation eventually. Patient is unable to afford IV antibiotics with home health. Will need SNF placement. Case discussed with Dr. Purdy, vascular surgery, who recommended to obtain bilateral lower extremity venous ultrasound for saphenous vein mapping. However, our facility does not have the qualified techs to do this. This will be arranged outpatient to be done on Monday, August 02, [address] [facility]. Patient will need to follow-up with Dr. Purdy on Monday outpatient. Will arrange for SNF placement so that patient can make it to her appointment for further workup outpatient.
[2024-07-31] MEDS: GABAPENTIN 100 MG CAPSULE PO (20:57)
[2024-08-01] VITALS (7 sets, daily range): BP systolic 104–141; BP diastolic 63–73; PULSE 85–106; RESP 16–18; TEMP 36.6–36.9; O2SAT 93–95
[2024-08-01 06:00] LABS: Basophils # (Auto) 0.1 Thou/mm3 (0.0-0.2); Basophils % (Auto) 0 % (0-2.5); Eosinophils % (Auto) 0 % (0-10); Hemoglobin 9.2 g/dL (12.0-16.0); Immature Granulocytes % (Auto) 4 % (0-0); Lymphocytes # (Auto) 0.9 Thou/mm3 (1.0-4.8); Lymphocytes % (Auto) 6 % (10-50); Mean Corpuscular HGB Conc 32.9 g/dl (31.0-37.0); Mean Corpuscular Hemoglobin 26.4 pg (25.0-35.0); Mean Corpuscular Volume 81 fL (80-100); Monocytes # (Auto) 1.5 Thou/mm3 (0.0-0.8); Monocytes % (Auto) 10 % (0-12); Neutrophils # (Auto) 11.9 Thou/mm3 (1.8-7.7); Neutrophils % (Auto) 80 % (37-80); Nucleated Red Blood Cell % 0 /100 WBC (0); Platelet Count 142 Thou/mm3 (140-440); RDW Standard Deviation 44.3 fL (36.4-46.3); Red Blood Count 3.48 Miln/mm3 (4.00-5.20)
[2024-08-01] MEDS: MORPHINE SULF INJ 10 MG/ML VIAL 2 MG IVP (07:45)
[2024-08-01] MEDS: INSULIN GLARGINE (Lantus) 5 UNIT/0.05 ML (PER 5 UNITS) 20 UNIT SC (08:30)
[2024-08-01] MEDS: MULTIVITAMINS TABLET 1 TAB PO (08:31)
[2024-08-01] MEDS: ATORVASTATIN CALCIUM 20 MG TABLET 40 MG PO (08:31)
[2024-08-01] MEDS: ZINC SULFATE 220 MG CAPSULE PO (08:32)
[2024-08-01] MEDS: Furosemide 20 MG TABLET PO (08:32)
[2024-08-01] MEDS: SENNA TABLET 1 TAB PO (08:32)
[2024-08-01] MEDS: ASCORBIC ACID 250 MG TABLET 500 MG PO (08:32)
[2024-08-01] MEDS: PANTOPRAZOLE 40 MG TABLET PO (08:32)
[2024-08-01] MEDS: cefTRIAXone/D5w 1gm IV premix 50 ML IV (08:33)
[2024-08-01] MEDS: Lisinopril 20 MG TABLET PO (08:33)
[2024-08-01] MEDS: METHIMAZOLE 5 MG TABLET PO (08:33)
[2024-08-01] MEDS: DOXYCYCLINE INJ 100 MG in SODIUM CHLORIDE 0.9% (P) 100 ML IV (08:33)
[2024-08-01] MEDS: GABAPENTIN 100 MG CAPSULE PO (08:33)
[2024-08-01 09:06] LABS: Alanine Aminotransferase 11 U/L (10-49); Albumin, Serum 3.3 gm/dL (3.4-4.8); Albumin/Globulin Ratio 1.5 (1.2-2.2); Alkaline Phosphatase 152 U/L (46-116); Anion Gap 9 (7-16); Aspartate Amino Transferase 14 U/L (0-34); BUN/Creatinine Ratio 15 Ratio (12-20); Bilirubin,Total 0.3 mg/dL (0.3-1.2); Blood Urea Nitrogen 9 mg/dL (9-23); Calcium 9.2 mg/dL (8.3-10.6); Calcium (Corrected) 9.8 mg/dL (8.5-10.1); Carbon Dioxide 25.5 mMol/L (20.0-31.0); Chloride 103 mMol/L (98-107); Creatinine (Component) 0.6 mg/dL (0.6-1.3); Estimated Creatinine Clearance 70.4 mL/min (>60); Globulin 2.2 gm/dL (2.3-3.5); Glucose 115 mg/dL (74-106); Magnesium 1.6 mg/dL (1.6-2.6); Osmolality,Calculated 273 (275-295); Phosphorous 3.3 mg/dL (2.4-5.1); Sodium 137 mMol/L (136-145); Total Protein 5.5 gm/dL (5.7-8.2); eGFR > 60 See Note
--- NOTE | 2024-08-01 10:04 | PC.CC ---
Addendum entered by Ezequiel Hayes RN 08/01/24 17:22: DC summary and dc orders sent to [facility]. Pending start of care date. Addendum entered by Ezequiel Hayes RN 08/01/24 17:13: error in original note. It is [facility] not [facility]. Addendum entered by Ezequiel Hayes RN 08/01/24 14:46: Dr. Santillan informed me that pt will be discharged home on PO abx and will need HH for PT. Addendum entered by Ezequiel Hayes RN 08/01/24 14:12: Informed [facility] and [facility]. Addendum entered by Ezequiel Hayes RN 08/01/24 14:08: During 1400 rounding Team and SS informed me that pt will be discharged to SNF. Addendum entered by Ezequiel Hayes RN 08/01/24 10:15: Called SS Matty and updated him regarding copay of $370.16 for a 9-day supply and the order is until 09/07/24. Plan is to talk to pt and team for alternative option. Original Note: [facility] and [facility] both accpeted the pt. Zuleika from [facility] updatd me Telephone call to the patient and provided her with co-pay amt. She stated she couldn't afford it . I told her we would follow up with you to see if there is an alternative option . I asked Zuleika about the copay amount and she replied Insurance is responding with a co-pay amount of $370.16 for a 9-day supply .
[2024-08-01] MEDS: RINGERS LACTATED 1000 ML 1,000 ML 999 ML IV (11:29)
[2024-08-01] MEDS: INSULIN LISPRO (AdmeLOG) 1 UNIT/0.01 ML UNIT SC (11:29)
[2024-08-01 11:30] LABS: Hematocrit 36.6 % (36.0-46.0)
[2024-08-01] MEDS: oxyCODONE HCL 5 MG IR TAB PO (11:47)
--- NOTE | 2024-08-01 13:19 | PC.SS ---
Update: Patient's WBC has elevated. Hemoglobin has dropped. Patient receiving IV antibiotics.
--- NOTE | 2024-08-01 13:20 | PC.SS ---
MANAGER HAIR informed by transfer nurse that patient will require IV antibiotic until 09-07-24. MANAGER HAIR informed that patient cannot afford out of pocket cost for IV antibiotic.
--- NOTE | 2024-08-01 13:23 | ESDS_ITS ---
<Statement entered by Yesy Alanis DO - 08/01/24 14:04> I, Yesy Alanis DO, attest that I was physically present for the garcia portions of the service and evaluated the patient with the resident and I reviewed and discussed the case with the resident and agree with the resident's findings and plans of care as documented above Planned Discharge Date 08/01/24 DS: Providers Provider Date of admission: 07/26/24 22:30 Primary care physician: Michael Morris MD Admitting Provider: Regino Bean DO Attending Provider on Admission: Yesy Alanis DO Consults: 07/26/24 21:38 Consult to General Surgery Stat Comment: Toe gangrene Consulting Provider: Adilene Matamoros 07/26/24 22:43 Consult to General Surgery Stat Comment: Left 5th toe osteomyelitis Consulting Provider: Adilene Matamoros 07/29/24 08:50 Referral Physical Therapy Stat Comment: Physician Instructions: 07/29/24 09:30 Referral Wound Care Routine Comment: 07/29/24 12:22 Referral OP Wound Healing Dept Routine Comment: Instructions: Left 5th toe amputation site, left 4th toe arterial ulcer, left heel stage 4 vs arterial ulcer s/p debridement 07/2707/29/24 13:14 Referral Nutritional Services Routine Comment: Instructions: Wounds and DM 07/29/24 16:27 Consult to Physician Routine Comment: Consulting Provider: Alvin Purdy 07/30/24 17:39 Referral - Command And Control Officer Stat Service Needed for Transfer: Vascular Surgery Addl Comments:: Dr. Paulino, angiogram Attending Provider on DC: Ray Morris MD Discharging Provider: Ray Morris MD DS: Diagnosis Problem List Completed Was Problem List Reviewed/Reconciled?: Yes Hospital Course Hospital Course Hospital course: 74-year-old female with a past medical history significant for insulin-dependent diabetes mellitus type 2, essential hypertension, hyperlipidemia, peripheral arterial disease and hyperthyroidism presenting today with a chief complaints of toe pain. Patient will be admitted for treatment and management of gangrene secondary to critical limb ischemia. During Hospital stay patients gangrene of left fifth toe osteomyelitis likely secondary to peripheral artery disease was managed with IV antibiotics namely ceftriaxone and doxycycline. General surgery, Dr. Matamoros was consulted and recommended amputation of the affected toe. Patient underwent this procedure without complications. Wound care was also provided, and pain was adequately controlled. However patient had a repeat foot xray which showed osteomyelitis of the middle phalanx fifth digit and proximal phalanx fourth digit. Pateint also had Abdomen CTA significant for 70% stenosis proximal 1 right common iliac artery, 50% stenosis proximal left common iliac artery. Multiple critical stenosis right superficial femoral artery. Occlusion proximal right anterior tibial artery and occlusion right main continuous trunk. Occlusion left superficial femoral artery proximally for 20 cm with multiple critical stenoses in mid and distal left superficial femoral artery.At this time we consulted Vascular surgeon, Dr. Paulino for which he recommended transfering patient to [facility] for possible angiogram. Patient also has history of insulin dependent diabetes which was managed with insulin sliding scale and hypoglycemia protocol. Patient has history of CKD stage IIIa for which medications were renally dosed and nephrotoxins were avoided. Hypertension and hyperlipidemia was managed by resuming patients home medication lisinopril, lasix and atorvastatin. Patient has history of hyperthyroidism for which patients home methimazole was resumed. At this time patient is medically stable for discharge. Recommend to follow up with primary doctor within 1 week of discharge. Recommend to continue IV antibiotic, ceftriaxone 2gm qday and per oral doxycycline 100 mg twice daily through September 07, 2024, continue IV antibiotic through PICC line, PICC line to be removed after last dose on September 07, 2024. Patient will undergo the saphenous vein mapping study at [facility] on Monday. And follow-up with Dr. Purdy on Monday. Recommended to follow up with vascular surgeon Dr. Purdy for evaluation of Peripheral artery disease. If symptoms recur or worsen patient is instructed to return to the ED. Problem List: #Gangrene secondary to severe PVD #Left fifth toe osteomyelitis #Severe Peripheral arterial disease #Status post fifth toe amputation #Uncontrolled insulin-dependent diabetes mellitus type 2 #Lactic acidosis-resolved #Pseudo hyponatremia-resolved #Chronic kidney disease stage IIIa #Essential hypertension #Hyperlipidemia #Hyperthyroidism Case discussed with my attending Dr. Zeke Morris MD PGY-1 Status at Discharge Functional status at discharge: uses cane/walker Overall status at discharge: patient is back to baseline Time Spent with Patient Time attestation: Total time spent providing and/or coordinating discharge services: Time spent: Greater than 30 minutes Home Health Home Health Referral Orders: 07/31/24 12:25 Home Health Referral Routine Reason For Exam: osteomyelitis Home-Bound The patient must either because of illness or injury, need the aid of supportive devices such as crutches, canes, wheelchairs, and walkers; the use of special transportation; or the assistance of another person in order to leave their place of residence; OR have a condition such that leaving his or her home is medically contraindicated. In addition, the patient also meets the following criteria: patient is normally unable to leave the home and leaving home requires considerable taxing effort. Addendum to Home Health Certification Practitioner's Certification: I certify that the patient has been under my care in the hospital and the care of attending physician (see below). We had a [id number] encounter on (see date below). My clinical findings indicate that the patient is home bound per the above criteria and the Home Health Services noted in these orders are medically necessary. The primary reason for the [id number] encounter is related to the fact that the patient requires home health services. Date Certifying [id number] Physician Encounter: 07/26/24 Physician's Name who will Assume Oversight for Services: Michael Morris Physician's Phone No.who will Assume Oversight for Service: BRASS CUTTER - Community Resources: No PT to Evaluate: Yes PT to evaluate and provide a treatmnet plan to increase patient's mobility and strength. Wound Care: Yes Home Health RN - Wound Care Order: as per wound nurse instructions IV Therapy: Yes: obtain weekly cbc, renal panel, esr and crp IV Medication: ceftriaxone IV Dose: 2g IV Frequency: daily IV Stop Date: 09/07/24 Discontinue PICC Line Once Treatment Complete: Yes RN Safety Evaluation: Yes RN to evaluate and create a plan of care that will produce positive outcomes. Palliative Treatment: No Palliative treatment and evaluate the need for hospice. Home Health Aide - Personal Care: Yes Home Health Aide to assist with any ADL's. Exam Vital Signs Temp Pulse Resp BP Pulse Ox O2 Del Method O2 Flow Rate 98.4 F 91 16 133/67 H 94 L Room Air 2 08/01/24 08:00 08/01/24 08:33 08/01/24 08:00 08/01/24 08:33 08/01/24 08:00 08/01/24 08:00 07/29/24 15:25 Narrative Exam Physical Exam GENERAL: NAD, AAOx3 HEENT: Moist mucosa. Eyes open, symmetrical, & clear CARDIO: Heart RRR, no obvious murmurs PULM: No noted coughing/dyspnea CTA B/L, no R/W/R GI: Abdomen soft, nondistended, no pain on palpation. BSx4 SKIN/MSK/EXT: Left foot covered with dressings, no pain on palpation. Minimal pedal pulses present B/L NEURO: AAOx3, no focal neuro deficits, able to move all 4 extremities Discharge Plan Plan Patient Disposition: Home w/HOME HEALTH Care Plan Goals: Recommend to follow up with primary doctor within 1 week of discharge. Recommend to continue antibiotics, levofloxacin 7 mg/day and doxycycline 100 mg twice daily through September 07, 2024. Recommended to follow up with vascular surgeon Dr. Purdy for evaluation of Peripheral artery disease. If symptoms recur or worsen patient is instructed to return to the ED. Prescriptions/Referrals Prescriptions/Med Rec: New levofloxacin 750 mg tablet 750 mg PO QDAY 37 Days Qty: 37 0RF doxycycline monohydrate 100 mg capsule 100 mg PO BID 37 Days Qty: 74 0RF Continued furosemide 20 mg Tablet 20 mg PO QAM Levemir FlexTouch U100 Insulin 100 unit/mL (3 mL) Insulin Pen 60 unit SUBCUT QDAY lisinopril 20 mg Tablet 20 mg PO QDAY famotidine 40 mg tablet 40 mg PO HS Patient Comments: take 1 tablet by mouth at bedtime pantoprazole 40 mg tablet,delayed release (DR/EC) 40 mg PO DAILY Patient Comments: take 1 tablet by mouth once daily atorvastatin 40 mg tablet 40 mg PO DAILY Patient Comments: take 1 tablet by mouth once daily methimazole 5 mg tablet 5 mg PO DAILY Patient Comments: take 1 tablet by mouth once daily 30 methocarbamol 750 mg Tablet 750 mg PO 4XD ferrous sulfate [FeroSul] 325 mg (65 mg iron) tablet 325 mg PO Q OTHER DAY 30 Days Qty: 15 0RF Patient Comments: take 1 tablet by mouth twice a day Discontinued glipizide 10 MG tablet 10 mg PO BID Qty: 0 propranolol 10 mg tablet 10 mg PO BID Patient Comments: take 1 tablet by mouth twice a day Referrals: Alvin Purdy MD [Physician] - Michael Morris MD [Primary Care Provider] - Patient/Caregiver Discharge Instructions Other Discharge Activity Instructions:: 1) Follow up at [facility] [address] [place] [address]. Call [phone] for appointment. 2) Follow up with [facility], call [phone] to reschedule appointment. 3) Avoid walking/ambulating using left foot. Elevate foot/calf to avoid heel or foot touching anything 4) Wound care to left foot (5th toe, 4th toe and heel): -Wash hands with soap and water than remove old dressing -Cleanse with wound cleanser spray and pat dry with gauze. -Wash hands again -Apply vasoline gauze, cut it to size of open wound -Layer with dry gauze and secure lightly with kerlix roll -Change once a day and as needed for falling off. 5) If active bleeding occurs, apply tight dressing and return to MD or ER. ?Notify primary doctor or return to Emergency Room if any of the following: ?Fever above 100.6? F. ?Increased pain ?Increase swelling ?Red streaks around your wound ?Drainage becomes foul smelling or changes color ?The wound is larger or deeper ?The wound looks dried out or dark ?Bleeding that does not stop with holding pressure Education Materials: Nutrition for Wound Healing, What Are Pressure Injuries of the Foot, Pressure Injury Dc, Changing Dressing Dc, Preventing Surgical Site Infections Print Language: Slovenian Stand Alone Forms: Jessica Award Info., Patient Portal Info Letter Discharge Order Discharge Orders: Discharge (Routine); Ordered 08/01/24 Ordered By: Ray Morris Quality Discharge Quality Measures VTE prophylaxis
--- NOTE | 2024-08-01 13:37 | PC.SS ---
Pt is requiring IV antibiotic Rocephin 2grm 1X day until 09-07-24. SS has sent inquiry using [employer]. SS met with pt yesterday who is agreeable to SNF and her choice was [facility]. SS explained [facility] possibly is unable to accomodte the IV antibiotic.
--- NOTE | 2024-08-01 14:37 | PC.SS ---
[facility] . Prior to admission [facility] for nursing and physical therapy.
--- NOTE | 2024-08-01 16:03 | PC.SS ---
Rounding Note: Patient to be transitioned to P.O. antibiotics. Plan is to discharge the patient home with home health.
--- NOTE | 2024-08-01 16:05 | PC.SS ---
RELIEF DRILLER informed transfer nurse that patient will be discharged home with home health services. Patient aligned with [facility].
--- NOTE | 2024-08-02 09:27 | PC.CC ---
Resume of care date with [facility] is 08/05/24.
== END 2024-08-01 16:16 | disposition home health service (06) | DRG 256 ==
LOC: SERX 18:03 → SERHOLD 23:08 → S3SX 23:25
PROVIDERS: Nurse Practitioner Primary Care; Student in an Organized Health Care Education/Training Program; Surgery; Admitting Provider Student in an Organized Health Care Education/Training Program; Emergency Provider Emergency Medicine; PCP Family Medicine; Visit Provider Internal Medicine
PROC: 0Y6Y0Z0 Detachment at Left 5th Toe, Complete, Open Approach (ICD-10-PCS; CPT 28820; principal; 2024-07-27 11:00)
DX: E11.52 Type 2 diabetes mellitus with diabetic peripheral angiopathy with gangrene (principal); E87.20 Acidosis, unspecified; I70.92 Chronic total occlusion of artery of the extremities; M86.9 Osteomyelitis, unspecified; L97.428 Non-pressure chronic ulcer of left heel and midfoot with other specified severity; L97.528 Non-pressure chronic ulcer of other part of left foot with other specified severity; E11.69 Type 2 diabetes mellitus with other specified complication; E11.621 Type 2 diabetes mellitus with foot ulcer; E78.5 Hyperlipidemia, unspecified; F15.10 Other stimulant abuse, uncomplicated; E11.65 Type 2 diabetes mellitus with hyperglycemia; E11.22 Type 2 diabetes mellitus with diabetic chronic kidney disease; I12.9 Hypertensive chronic kidney disease with stage 1 through stage 4 chronic kidney disease, or unspecified chronic kidney disease; R74.8 Abnormal levels of other serum enzymes; E05.90 Thyrotoxicosis, unspecified without thyrotoxic crisis or storm; I70.223 Atherosclerosis of native arteries of extremities with rest pain, bilateral legs; L97.529 Non-pressure chronic ulcer of other part of left foot with unspecified severity; E03.9 Hypothyroidism, unspecified; N18.31 Chronic kidney disease, stage 3a; Z79.4 Long term (current) use of insulin; Z79.899 Other long term (current) drug therapy; Z87.891 Personal history of nicotine dependence; Z96.641 Presence of right artificial hip joint; Z90.49 Acquired absence of other specified parts of digestive tract; Z87.19 Personal history of other diseases of the digestive system
CPT/HCPCS: 36415; 73620; 73660; 75635; 80053; 80061; 80307; 83036; 83605; 83690; 83735; 84100; 84145; 84443; 85014; 85018; 85025; 85610; 85652; 85730; 86140; 87081; 97162; A4217; A4649; C1751; C1894; J0689; J0696; J1642; J1815; J2250; J2270; J2371; J2543; J2704; J2795; J3010; J3371; J3490; J7030; J7050; J7120; Q9967; A9270